=== PATIENT | female | born 1990 | race Caucasian/White ===

== ENCOUNTER 2023-04-25 21:23 | Outpatient (REF) | payer MEDICAID, SELFPAY ==
[2023-05-01 11:09] LABS: Age Gdln ACOG Testing Note (.); HPV Aptima Negative (Negative); IGP, Aptima HPV, rfx 16/18,45 Note (.)
== END 2023-04-25 21:24 | disposition home or self-care (01) ==
LOC: LAB 21:23
PROVIDERS: Visit Provider Obstetrics & Gynecology
DX: Z01.419 Encounter for gynecological examination (general) (routine) without abnormal findings (principal)
CPT/HCPCS: 87624; G0145

== ENCOUNTER 2024-01-06 14:17 | Emergency (ER) | payer MEDICAID, SELFPAY ==
[2024-01-06 14:38] VITALS: BP 133/92; PULSE 88; TEMP 37.5; O2SAT 99; BMI 21.9
--- OUTSIDE RECORDS SUMMARY | 2024-01-06 14:40 | XMS_ITS | CCD ---
Author Organization [facility] Care Team Providers Care Vice President Corporate Communications Name Role Phone AMMON OLIVAREZ Referring Unavailable ANGLIM, BRIA Primary Care Unavailable Anglim, Bria Primary Care Provider [phone] BELL[address] ., DR ST Consulting Unavailabl e ANGLIM, BRIA Primary Care Unavailable KARASIK ., DR ST Attending Unavailabl e KARASIK ., DR ST Admitting Unavailabl e KONSTAN, CIARAN Consulting Unavailable ANGLIM, BRIA Primary Care Unavailable CROTNEY ., DR CHU Attending Unavailable CORTNEY ., DR HCU Admitting Unavailable ANGLIM, BRIA Primary Care Unavailable CORTNEY ., DR CHU Attending Unavailable CORTNEY ., DR CHU Admitting Unavailable QUIROS, LEONEL Consulting Unavailable ANGLIM, BRIA Primary Care Unavailable CORTNEY ., DR CHU Attending Unavailable CORTNEY ., DR CHU Admitting Unavailable CORTNEY ., DR CHU Consulting Unavailable ANGLIM, BRIA Primary Care Unavailable CORTNEY ., DR CHU Attending Unavailable CORTNEY ., DR CHU Admitting Unavailable CORTNEY ., DR CHU Consulting Unavailable ANGLIM, BRIA Primary Care Unavailable CORTNEY ., DR CHU Attending Unavailable CORTNEY ., DR CHU Admitting Unavailable AGUBOSIM, KILLIAN Consulting Unavailable LONG, JENNIFER Consulting Unavailable ANGLIM, BRIA Consulting Unavailable CORTNEY ., DR CHU Consulting Unavailable ANGLIM, BRIA Primary Care Unavailable CORTNEY ., DR CHU Attending Unavailable CORTNEY ., DR CHU Admitting Unavailable CORTNEY ., DR CHU Consulting Unavailable ANGLIM, BRIA Primary Care Unavailable CORTNEY ., DR CHU Attending Unavailable CORTNEY ., DR CHU Admitting Unavailable CORTNEY ., DR CHU Consulting Unavailable ANGLIM, BRIA Primary Care Unavailable CORTNEY ., DR CHU Attending Unavailable CORTNEY ., DR CHU Admitting Unavailable TERRA ., CORNELIUS Consulting Unavailable ANGLIM, BRIA Primary Care Unavailable TERRA ., CORNELIUS Attending Unavailable TERRA ., CORNELIUS Admitting Unavailable CORTNEY ., DR CHU Consulting Unavailable ANGLIM, BRIA Primary Care Unavailable CORTNEY ., DR CHU Attending Unavailable CORTNEY ., DR CHU Admitting Unavailable DAVID GARRETT Unavailable JOSE C, MENNATALLAH M Attending Unavailable ANGLIM, BRIA A Referring Unavailable MCDERMOTT, ADRYAN L Primary Care Unavailable JOSE C, MENNATALLAH M Attending Unavailable MCDERMOTT, ADRYAN L Referring Unavailable MCDERMOTT, ADRYAN L Primary Care Unavailable CORTNEYVLAD Attending Unavailable MCDERMOTT, ADRYAN L Referring Unavailable MCDERMOTT, ADRYAN L Primary Care Unavailable JOSE C, MENNATALLAH M Admitting Unavailable JOSE C, MENNATALLAH M Attending Unavailable MCDERMOTT, ADRYAN L Primary Care Unavailable MCDERMOTT, ADRYAN L Primary Care Unavailable KIMBERLY AWAN Attending Unavailable Allergies Allergy Classification Reported Allergen(s) Allergy Type Date of Onset Reaction(s) Facility (3 sources) Phenazopyridine; Translations: [PHENAZOPYRIDINE] Drug Allergy 04-30-19 20 Other (See Comments) [place], [place] (1 source) Sulfonamides (Antibiotic) Propensity to adverse reactions to drug 08-24-19 17 [place] (1 source) Phenazopyridine Drug Allergy 10-09-19 21 [facility] Repository (2 sources) Sulfamethoxazole / Trimethoprim Drug Allergy 01-13-20 14 [facility] Repository (2 sources) Sulfonamides (Antibiotic) Drug allergy (disorder) 01-13-20 14 [facility] Rep[facility] (2 sources) Sulfamethoxazole / Trimethoprim; Translations: [SULFAMETHOXAZOLE-T RIMETHOPRIM] Drug Allergy 08-24-19 17 [facility] Repository (2 sources) Sulfonamides (Antibiotic); Translations: [SULFA (SULFONAMIDE ANTIBIOTICS)] Propensity to adverse reactions to drug (disorder) 08-24-19 17 [facility] Repository (2 sources) CAT DANDER; Translations: [CAT DANDER] Propensity to adverse reactions to drug (disorder) 10-02-19 24 [facility] Medications Current Medications Medication Drug Class(es) Dates Sig (Normalized) Sig (Original) fluconazole 100 mg oral tablet (1 source) Azole Antifungal take 1 tablet by mouth once daily fluconazole (DIFLUCAN) 100 MG tablet Take 100 mg by mouth daily 0 Active Problems Active Problems Problem Classification Problem Date Documented Date Episodic/Chronic Alcohol-related disorders (1 source) Alcohol dependence, uncomplicated; Translations: [ALCOHOL DEPENDENCE UNCOMPLICATED] Onset: 07-27-2021 Chronic Alcohol-related disorders (1 source) Alcohol use, unspecified with intoxication, uncomplicated; Translations: [Alcohol use, unspecified with intoxication, uncomplicated] Onset: 01-01-2024 Episodic Anxiety disorders (1 source) Post-traumatic stress disorder, unspecified; Translations: [POST-TRAUMATIC STRESS DISORDER UNS] Onset: 07-27-2021 Chronic Immunizations and screening for infectious disease (1 source) Encounter for screening for human papillomavirus (HPV); Translations: [ENC SCREENING HUMAN PAPILLOMAVIRUS] Onset: 04-21-2022 Episodic Menstrual disorders (4 sources) Irregular menstruation, unspecified; Translations: [IRREGULAR MENSTRUATION UNSPECIFIED] Onset: 05-09-2022 Chronic Open wounds of head; neck; and trunk (1 source) Laceration without foreign body of other part of head, initial encounter; Translations: [Laceration without foreign body of other part of head, initial encounter] Onset: 01-01-2024 Episodic Other acquired deformities (1 source) Scoliosis, unspecified; Translations: [SCOLIOSIS UNSPECIFIED] Onset: 07-27-2021 Chronic Other injuries and conditions due to external causes (1 source) Unspecified multiple injuries, initial encounter; Translations: [Unspecified multiple injuries, initial encounter] Onset: 01-01-2024 Episodic Other screening for suspected conditions (not mental disorders or infectious disease) (8 sources) Encounter for screening for malignant neoplasm of cervix; Translations: [Encounter for screening for Streptococcus B] Onset: 05-11-2021 Episodic Other skin disorders (1 source) Epidermal cyst; Translations: [Epidermal cyst] Onset: 10-02-2023 Episodic Ovarian cyst (1 source) Unspecified ovarian cyst, right side; Translations: [UNSPECIFIED OVARIAN CYST RIGHT SIDE] Onset: 05-11-2022 Episodic Substance-related disorders (1 source) Nicotine dependence, cigarettes, uncomplicated; Translations: [NICOTINE DEPEND CIGARETTES UNCOMP] Onset: 07-27-2021 Chronic Unclassified (1 source) CONTACT W/AND (SUSP) EXPOS COVID-19; Translations: [CONTACT W/AND (SUSP) EXPOS COVID-19] Onset: 07-22-2021 Unclassified (1 source) POST-OP VISIT Onset: 10-29-2023 Unclassified (1 source) Cyst Onset: 10-02-2023 Unclassified (1 source) Usp Clearance Onset: 01-01-2024 Unclassified (1 source) right preauricular epidermoid cyst Onset: 10-15-2023 Past or Other Problems Problem Classification Problem Date Documented Da te Episodic/Chronic Contraceptive and procreative management (5 sources) Encounter for sterilization; Translations: [ENCOUNTER FOR STERILIZATION] Onset: 07-13-2021 Episodic Early or threatened labor (4 sources) False labor before 37 completed weeks of gestation, third trimester; Translations: [FALSE LABR BEFOR 37 WK GEST 3RD TRI] Onset: 05-15-2021 Episodic Residual codes; unclassified (1 source) 36 weeks gestation of ; Translations: [36 WEEKS GESTATION OF ] Onset: 05-17-2021 Episodic Results Test Name Value Interpretation Reference Range Facility BASIC METABOLIC PANLon 12-31 Anion gap [Moles/Vol] 15 mmol/L Normal 5-15 [facility] Comment on above: Performed By: #### C ALFA SINGLETON, 5643-2 #### [facility] ([id number]) [address] [place] [address] 20324 Calcium [Mass/Vol] 9.2 mg/dL Normal 8.5-10.5 [facility] Comment on above: Performed By: #### C ALFA SINGLETON, 5643-2 #### [facility] ([id number]) [address] [place] [address] 31321 Chloride [Moles/Vol] 112 mmol/L High 98-109 [facility] Comment on above: Performed By: #### C ALFA SINGLETON, 5643-2 #### [facility] ([id number]) [address] [place] [address] 02394 CO2 [Moles/Vol] 13 mmol/L Low 22-32 [facility] Comment on above: Performed By: #### C ALFA SINGLETON, 5643-2 #### [facility] ([id number]) [address] [place] [address] 56905 Creatinine [Mass/Vol] 0.74 mg/dL Normal 0.40-1.00 [facility] Comment on above: Result Comment: METH OD TRACEABLE TO IDMS STANDARD Performed By: #### C ALFA SINGLETON, 5643-2 #### [facility] ([id number]) [address] [place] [address] 43071 eGFR (CKD-EPI) NON-RACE DEPENDENT >90 Normal >59 [facility] Comment on above: Result Comment: Reported eGFR is based on the CKD-EPI 2020 equation that does not use a race coefficient. Performed By: #### C ALFA SINGLETON, 5643-2 #### [facility] ([id number]) [address] [place] [address] 98367 Glucose [Mass/Vol] 125 mg/dL High 65-99 [facility] Comment on above: Performed By: #### C ALFA SINGLETON, 5643-2 #### [facility] ([id number]) [address] [place] [address] 57168 Potassium [Moles/Vol] 3.0 mmol/L Low 3.5-5.0 [facility] Comment on above: Performed By: #### ALFA Palacio BCA, 5643-2 #### [facility] ([id number]) [address] [place] [address] 98923 Sodium [Moles/Vol] 140 mmol/L Normal 134-146 [facility] Comment on above: Performed By: #### ALFA Palacio BCA, 5643-2 #### [facility] ([id number]) [address] [place] [address] 43416 Urea nitrogen [Mass/Vol] 10 mg/dL Normal 5-23 [facility] Comment on above: Performed By: #### ALFA Palacio BCA, 5643-2 #### [facility] ([id number]) [address] [place] [address] 33120 CBC AND AUTO DIFFon 01-01-20 24 ABSOLUTE BASOPHIL 0.2 X10E9/L Normal 0.0-0.2 [facility] Comment on above: Performed By: #### ALFA Palacio BCA, 5643-2 #### [facility] ([id number]) [address] [place] [address] 79590 ABSOLUTE NEUTROPHIL 4.9 X10E9/L Normal 1.5-6.6 [facility] Comment on above: Performed By: #### ALFA Palacio BCA, 5643-2 #### [facility] ([id number]) [address] [place] [address] 84699 Basophils/100 WBC (Bld) 2.0 % Normal [facility] Comment on above: Performed By: #### ALFA Palacio BCA, 5643-2 #### [facility] ([id number]) [address] [place] [address] 29018 Eosinophils (Bld) [#/Vol] 0.1 10*3/uL Normal 0.0-0.4 [facility] Comment on above: Performed By: #### ALFA Palacio BCA, 5643-2 #### [facility] ([id number]) [address] [place] [address] 99131 Eosinophils/100 WBC (Bld) 1.3 % Normal [facility] Comment on above: Performed By: #### ALFA Palacio BCA, 5643-2 #### [facility] ([id number]) [address] [place] [address] 35117 Erythrocyte distribution width (RBC) [Ratio] 13.4 % Normal 11.5-15.0 [facility] Comment on above: Performed By: #### ALFA Palacio BCA, 5643-2 #### [facility] ([id number]) [address] [place] [address] 81795 Hematocrit (Bld) [Volume fraction] 44.8 % Normal 35-47 [facility] Comment on above: Performed By: #### ALFA Palacio BCA, 5643-2 #### [facility] ([id number]) [address] [place] [address] 59044 Hemoglobin (Bld) [Mass/Vol] 15.2 g/dL Normal 11.7-15.5 [facility] Comment on above: Performed By: #### ALFA Palacio BCA, 5642-2 #### [facility] ([id number]) [address] [place] [address] 57976 Lymphocytes (Bld) [#/Vol] 3.0 10*3/uL Normal 1.0-3.5 [facility] Comment on above: Performed By: #### Pia SINGLETON [facility], 5642-2 #### [facility] ([id number]) [address] [place] [address] 87576 Lymphocytes/100 WBC (Bld) 33.9 % Normal [facility] Comment on above: Performed By: #### ALFA Palacio BCA, 5642- #### [facility] ([id number]) [address] [place] [address] 16074 MCH (RBC) [Entitic mass] 32.0 pg Normal 27-34 [facility] Comment on above: Performed By: #### ALFA Palacio BCA, 43-2 #### [facility] ([id number]) [address] [place] [address] 70127 MCHC (RBC) [Mass/Vol] 34.0 g/dL Normal 32-36 [facility] Comment on above: Performed By: #### ALFA Palacio BCA, 43-2 #### [facility] ([id number]) [address] [place] [address] 93920 MCV (RBC) [Entitic vol] 94 fL Normal 80-100 [facility] Comment on above: Performed By: #### ALFA Palacio BCA, 5643-2 #### [facility] ([id number]) [address] [place] [address] 24979 Monocytes (Bld) [#/Vol] 0.6 10*3/uL Normal 0-0.9 [facility] Comment on above: Performed By: #### ALFA Palacio BCA, 5643- #### [facility] ([id number]) [address] [place] [address] 23065 Monocytes/100 WBC (Bld) 7.0 % Normal [facility] Comment on above: Performed By: #### ALFA Palacio BCA, 5643-2 #### [facility] ([id number]) [address] [place] [address] 40494 Neutrophils/100 WBC (Bld) 55.8 % Normal [facility] Comment on above: Performed By: #### Pia SINGLETON [facility], 5643-2 #### [facility] ([id number]) [address] [place] [address] 71679 Platelet mean volume (Bld) [Entitic vol] 8.4 fL Normal 7-12 [facility] Comment on above: Performed By: #### ALFA Palacio BCA, 5643-2 #### [facility] ([id number]) [address] [place] [address] 99233 Platelets (Bld) [#/Vol] 312 10*3/uL Normal 150-450 [facility] Comment on above: Performed By: #### ALFA Palacio BCA, 5643-2 #### [facility] ([id number]) [address] [place] [address] 36172 RBC COUNT 4.76 X10E12/L Normal 3.80-5.20 [facility] Comment on above: Performed By: #### C MANI, ALFA, 5643-2 #### [facility] ([id number]) [address] [place] [address] 51844 WBC (Bld) [#/Vol] 8.8 10*3/uL Normal 4.0-11.0 [facility] Comment on above: Performed By: #### C MANI, BMP, 5643-2 #### [facility] ([id number]) [address] [place] [address] BRAIN WO CONTon CT BRAIN WO CONT CT BRAIN WO CONT CLINICAL INFORMATION: Head trauma, moderate-severe TECHNIQUE: CT BRAIN WO CONT CT images of the brain were obtained. Plummer-white differentiation appears intact without cortical infarct. No acute hemorrhage seen. Ventricles are nondilated. Sinuses clear. No calvarial abnormality. IMPRESSION: Negative exam. All CT scans at this facility use dose modulation, iterative reconstruction, and/or weight based dosing when appropriate to reduce radiation dose to as low as reasonably achievable. Finalized by Virgilio Iqbal MD on 01/01/2024 6:14 PM Normal [facility] CT CERVICAL SPINE WO CONTon 01-01-2024 CT CERVICAL SPINE WO CONT CT CERVICAL SPINE WO CONT CLINICAL INFORMATION: Neck trauma, dangerous injury mechanism (Age 16-64y) TECHNIQUE: CT CERVICAL SPINE WO CONT CT images of the cervical spine were obtained with images reformatted in the sagittal and coronal planes. Endplates appear intact without compression. No cervical malalignment. Facets are aligned. There is no prevertebral soft tissue swelling or evidence of acute cervical spine fracture. Lung apices grossly clear. IMPRESSION: No acute findings. All CT scans at this facility use dose modulation, iterative reconstruction, and/or weight based dosing when appropriate to reduce radiation dose to as low as reasonably achievable. Finalized by Virgilio Iqbal MD on 01/01/2024 6:14 PM Normal [facility] CT FACIAL BONES WO CONTon CT FACIAL BONES WO CONT CT FACIAL BONES WO CONT CT FACIAL BONES WO CONT 01/01/2024 5:43 PM INDICATION: Facial trauma, blunt, chin abrasion COMPARISON: 12/07/2019 TECHNIQUE: Noncontrast CT images of the facial bones were obtained. All CT scans at this facility use dose modulation, iterative reconstruction, and/or weight based dosing when appropriate to reduce radiation dose to as low as reasonably achievable. FINDINGS: Entirety of mandible not included in field of view, visualized portions are unremarkable. The pterygoid plates and zygomatic arches are unremarkable. Orbital margins are unremarkable. No definite displaced nasal bone fracture. Lateral nasal septal deviation, no definite displaced fracture. Skull base is unremarkable. Indeterminate approximately 17 mm cutaneous/subcutaneou s lesion of the right premaxillary region. Additional more subtle cutaneous lesion of the left mandibular region. IMPRESSION: 1. Entirety of mandible not included in field of view, visualized portions are unremarkable. No definite acute facial fracture. 2. Indeterminate approximately 17 mm cutaneous/subcutaneou s lesion of the right premaxillary region. Additional more subtle cutaneous lesion of the left mandibular region. Direct visualization recommended. Finalized by Hong Teresa DO on 01/01/2024 6:21 PM Normal [facility] Ethanol [Mass/Vol]on 024 ETHANOL 0.32 g/dL High 0.00-0.08 [facility] Comment on above: Result Comment: This report is intended for use in clinical monitoring or management of patients. Performed By: #### C BCA, [facility], 5643-2 #### [facility] ([id number]) [address] [place] [address], [place] [address] Surgical Pathologyon 024 Surgical Pathology Normal [facility] Comment on above: Result Comment: [facility] [address] [place] [address] Surgical Pathology Consultation Patient Name:JOE MCLEAN:1990 (Age: 33)Gender:FTaken:4Reported:4Physician(s):Ivy Sloan MD ([phone])Copy To: Rec. #:[id number]: #[id number] Final Pathologic Diagnosis Right preauricular cyst, excision: Benign dense fibrocollagenous tissue focally lined by keratinizing squamous epithelium, consistent with wall of keratinous cyst (epidermal inclusion cyst). Report Electronically Signed Out ao/4Ajaye Poon MD Interpretation performed at [facility], [address] [place] [address], License number: [id number]. Clinical History Right preauricular epidermoid cyst. Gross Description Received in formalin labeled GLAND, right preauricular cyst is a plummer-grant to pink, disrupted cystic structure, 0.8 x 0.6 x 0.3 cm. The capsular surface is smooth and glistening. The cyst lining is smooth and glistening with no papillations identified. The specimen is inked black, longitudinally bisected, and entirely submitted in a single cassette. (1, ns, [id number], m1) ANÍBAL barbosa/4R Specimen(s) Received Right ear preauricular cyst Fee Codes(s): 1; 28539 CBC AUTO DIFFon 05-09-2022 BASO # 0.1 103/ul Normal 0.0-0.1 [facility] Comment on above: Performed By: #### U MICRO, UACSIND #### [facility] [address] [place] [address] Dr. Lani Toledo Basophils/100 WBC (Bld) 0.9 % Normal 0.2-2.0 [facility] Comment on above: Performed By: #### U MICRO, UACSIND #### [facility] [address] [address] [address] Lani Toledo EO # 0.1 103/ul Normal 0.0-0.7 [facility] Comment on above: Performed By: #### U MICRO, UACSIND #### [facility] [address] [address] [address] Lani Toledo Eosinophils/100 WBC (Bld) 1.4 % Normal 0.9-7.0 [facility] Comment on above: Performed By: #### U MICRO, UACSIND #### [facility] [address] [place] [address] Dr. Lani Toledo Erythrocyte distribution width (RBC) [Ratio] 16.7 % Critically high 11.0-15.0 [facility] Comment on above: Performed By: #### U MICRO, UACSIND #### [facility] [address] [place] [address] Dr. Lani Toledo Hematocrit (Bld) [Volume fraction] 37.9 % Normal 36.0-48.0 [facility] Comment on above: Performed By: #### U MICRO, UACSIND #### [facility] [address] [place] [address] Dr. Lani Toledo Hemoglobin (Bld) [Mass/Vol] 12.7 g/dL Normal 12.0-16.0 [facility] Comment on above: Performed By: #### U MICRO, UACSIND #### [facility] [address] [place] [address] Dr. Lani Toledo IG # 0.01 10e3/ul Normal 0.00-0.03 [facility] Comment on above: Performed By: #### U MICRO, UACSIND #### [facility] [address] [place] [address] Dr. Lani Toledo IG % 0.2 % Normal 0.0-0.5 [facility] Comment on above: Performed By: #### U MICRO, UACSIND #### [facility] [address] [place] [address] Dr. Lani Toledo LYMPH # 2.0 103/ul Normal 1.2-3.8 [facility] Comment on above: Performed By: #### U MICRO, UACSIND #### [facility] [address] [place] [address] Dr. Lani Toledo Lymphocytes/100 WBC (Bld) 35.6 % Normal 20.5-60.0 [facility] Comment on above: Performed By: #### U MICRO, UACSIND #### [facility] [address] [place] [address] Dr. Lani Toledo MANUAL DIFF REQ NO Normal [facility] Comment on above: Performed By: #### U MICRO, UACSIND #### [facility] [address] [place] [address] Dr. Lani Toledo MCH (RBC) [Entitic mass] 27.9 pg Normal 26.7-34.0 [facility] Comment on above: Performed By: #### U MICRO, UACSIND #### [facility] [address] [place] [address] Dr. Lani Toledo MCHC (RBC) [Mass/Vol] 33.5 g/dL Normal 29.9-35.2 [facility] Comment on above: Performed By: #### U MICRO, UACSIND #### [facility] [address] [place] [address] Dr. Lani Toledo MCV (RBC) [Entitic vol] 83.1 fL Normal 81.0-99.0 [facility] Comment on above: Performed By: #### U MICRO, UACSIND #### [facility] [address] [place] [address] Dr. Lani Toledo MONO # 0.5 103/ul Normal 0.3-0.8 [facility] Comment on above: Performed By: #### U MICRO, UACSIND #### [facility] [address] [place] [address] Dr. Lani Toledo Monocytes/100 WBC (Bld) 9.0 % Normal 1.7-12.0 [facility] Comment on above: Performed By: #### U MICRO, UACSIND #### [facility] [address] [place] [address] Dr. Lani Toledo NEUT # 2.9 103/ul Normal 1.4-6.5 [facility] Comment on above: Performed By: #### U MICRO, UACSIND #### [facility] [address] [place] [address] Dr. Lani Toledo Neutrophils/100 WBC (Bld) 52.9 % Normal 43.0-75.0 [facility] Comment on above: Performed By: #### U MICRO, UACSIND #### [facility] [address] [address] [address] Lani Toledo Platelet mean volume (Bld) [Entitic vol] 9.4 fL Critically low 9.5-13.5 [facility] Comment on above: Performed By: #### U MICRO, UACSIND #### [facility] [address] [address] [address] Lani Toledo PLT 288 103/ul Normal 150-450 [facility] Comment on above: Performed By: #### U MICRO, UACSIND #### [facility] [address] [address] [address] Lani Toledo RBC 4.56 106/ul Normal 4.20-5.40 [facility] Comment on above: Performed By: #### U MICRO, UACSIND #### [facility] [address] [address] [address] Lani Toledo WBC 5.5 103/ul Normal 4.0-11.0 [facility] Comment on above: Performed By: #### U MICRO, UACSIND #### [facility] [address] [place] [address] Dr. Lani Toledo FREE T4on 05-09-2022 Free T4 [Mass/Vol] 1.11 ng/dL Normal 0.76-1.46 [facility] Comment on above: Performed By: #### F T4 #### [facility] [address] [address] [address] Lani Toledo GLYCOHEMOGLOBIN A1Con 2022 ADA RECOMMENDATION SEE BELOW Normal [facility] Comment on above: Result Comment: ADA RECOMMENDED LIMIT 4.0 - 6.0 ADA THERAPEUTIC TARGET < 7.0 ACTION SUGGESTED > 7.0 Performed By: #### A 1C #### [facility] [address] [place] [address] Dr. Lani Toledo Glucose [Mass/Vol] 108 mg/dL Normal [facility] Comment on above: Performed By: #### A 1C #### [facility] [address] [place] [address] Dr. Lani Toledo HbA1c (Bld) [Mass fraction] 5.4 % Normal 4.5-6.2 [facility] Comment on above: Performed By: #### A 1C #### [facility] [address] [place] [address] Dr. Lani Toledo PROTIMEon 05-09-2022 INR Coag (PPP) [Relative time] 1.10 {INR} Normal [facility] Comment on above: Performed By: #### P T, PTT #### [facility] [address] [place] [address] Dr. Lani Toledo INR GUIDELINES SEE BELOW Normal [facility] Comment on above: Result Comment: ESTRELLA RED INR: 2.0 - 3.0 CONDITIONS NOT LISTED BELOW 2.5 - 3.5 FOR PROSTHETIC HEART VALVE REPLACEMENT 2.5 - 3.5 RECURRENT THROMBOSIS Performed By: #### P T, PTT #### [facility] [address] [place] [address] Dr. Lani Toledo PT Coag (PPP) [Time] 11.6 s Normal 9.0-11.6 [facility] Comment on above: Performed By: #### P T, PTT #### [facility] [address] [place] [address] Dr. Lani Toledo PTTon 05-09-2022 aPTT Coag (Bld) [Time] 28.2 s Normal 22.3-36.2 [facility] Comment on above: Performed By: #### P T, PTT #### [facility] [address] [place] [address] Dr. Lani Toledo TSHon 05-09-2022 TSH 1.068 uIU/mL Normal 0.358-3.740 [facility] Comment on above: Performed By: #### U MICRO, UACSIND #### [facility] [address] [place] [address] Dr. Lani Toledo US PELVIS AND TRANSVAGon US PELVIS AND TRANSVAG EXAM: Pelvic ultrasound HISTORY: . Irregular periods . COMPARISON: None. TECHNIQUE: Transabdominal and transvaginal scanning was performed. FINDINGS: Scanning of the pelvis demonstrates an anteverted uterus. The uterus measures 9.1 x 4.6 x 6.2 cm. Endometrial complex measures 9 mm. Right ovary measures 3.8 x 2.3 x 2.5 cm. Color-flow is noted. There is a 2.1 x 1.5 cm cyst within the right ovary. Left ovary measures 2.5 x 2.7 x 1.4 cm. Color-flow is noted. Follicles are noted within the left ovary. No fluid is noted in the cul-de-sac. IMPRESSION: 1. Normal-appearing anteverted uterus. 2. Normal left ovary. 3. 2.1 x 1.5 cm cyst within the right ovary. Electronically authenticated by: DAVID GARRETT Date: 2022-05-09 12:56 Normal [facility] PAP ACOG PANEL 2: 30 to 65on 04-26-2022 HPV Genotype 16 Negative Normal Negative [facility] Comment on above: Performed By: #### [id number] #### [facility] [address] [place] [address] Dr. Lani Toledo HPV Genotype 18,45 Negative Normal Negative [facility] Comment on above: Performed By: #### [id number] #### [facility] [address] [address] [address] Lani Toledo . . Normal [facility] Comment on above: Result Comment: Perf ormed at: [facility] Performed By: #### [id number] #### [facility] [address] [address] [address] Lani Toledo Age Gdln ACOG Testing 30-65 Normal [facility] Comment on above: Performed By: #### [id number] #### [facility] [address] [address] [address] Lani Toledo DIAGNOSIS: Comment Normal [facility] Comment on above: Result Comment: NEGA TIVE FOR INTRAEPITHELIAL LESION OR MALIGNANCY. Performed at: [facility] Performed By: #### [id number] #### [facility] [address] [address] [address] Lani Toledo HPV Aptima Positive Abnormal Negative [facility] Comment on above: Result Comment: This nucleic acid amplification test detects fourteen high-risk HPV types (16,18,31,33,35,39,45,51,52,56,58,59,66,68) without differentiation. Performed at: =G Performed By: #### [id number] #### [facility] [address] [place] [address] Dr. Lani Toledo HPV Genotype Reflex Comment Normal [facility] Comment on above: Result Comment: Alex conner, see HPV Genotype results. Performed at: [facility] Performed By: #### [id number] #### [facility] [address] [place] [address] Dr. Lani Toledo Methodology: Comment Normal [facility] Comment on above: Result Comment: This liquid based ThinPrep(R) pap test was screened with the use of an image guided system. Performed at: [facility] Performed By: #### [id number] #### [facility] [address] [place] [address] Dr. Lani Toledo Note: Comment Normal [facility] Comment on above: Result Comment: The Pap smear is a screening test designed to aid in the detection of premalignant and malignant conditions of the uterine cervix. It is not a diagnostic procedure and should not be used as the sole means of detecting cervical cancer. Both false-positive and false-negative reports do occur. . Performed at: [facility] Performed By: #### [id number] #### [facility] [address] [place] [address] Dr. Lani Toledo Performed by: Comment Normal [facility] Comment on above: Result Comment: Rip Galindo, Raised Printer (ASCP) Performed at: [facility] Performed By: #### [id number] #### [facility] [address] [place] [address] Dr. Lani Toledo Specimen adequacy: Comment Normal [facility] Comment on above: Result Comment: Sati sfactory for evaluation. Endocervical and/or squamous metaplastic cells (endocervical component) are present. Performed at: [facility] Performed By: #### [id number] #### [facility] [address] [place] [address] Dr. Lani Toledo CHLAMYDIA/GONOCOCCUS ADORE (SW AB/URINE/PAPon 04-21-2022 Chlamydia trachomatis, ADORE Negative Normal Negative [facility] Comment on above: Performed By: #### U MICRO, UACSIND #### [facility] [address] [place] [address] Dr. Lani Toledo Neisseria gonorrhoeae, ADORE Negative Normal Negative [facility] Comment on above: Performed By: #### U MICRO, UACSIND #### [facility] [address] [address] [address] Lani Toledo VAGINITIS/VAGINOSIS DNA PROB Percy 04-20-2022 Samanta species Negative Normal Negative [facility] Comment on above: Performed By: #### U MICRO, UACSIND #### [facility] [address] [place] [address] Dr. Lani Toledo Gardnerella vaginalis Negative Normal Negative [facility] Comment on above: Performed By: #### U MICRO, UACSIND #### [facility] [address] [place] [address] Dr. Lani Toledo Trichomonas vaginalis Negative Normal Negative [facility] Comment on above: Performed By: #### U MICRO, UACSIND #### [facility] [address] [place] [address] Dr. Lani Toledo CBC AUTO DIFFon 07-22-2021 BASO # 0.1 103/ul Normal 0.0-0.1 [facility] Comment on above: Performed By: #### U MICRO, UACSIND #### [facility] [address] [place] [address] Dr. Lani Toledo Basophils/100 WBC (Bld) 0.7 % Normal 0.2-2.0 [facility] Comment on above: Performed By: #### U MICRO, UACSIND #### [facility] [address] [place] [address] Dr. Lani Toledo EO # 0.2 103/ul Normal 0.0-0.7 [facility] Comment on above: Performed By: #### U MICRO, UACSIND #### [facility] [address] [place] [address] Dr. Lani Toledo Eosinophils/100 WBC (Bld) 1.5 % Normal 0.9-7.0 [facility] Comment on above: Performed By: #### U MICRO, UACSIND #### [facility] [address] [place] [address] Dr. Lani Toledo Erythrocyte distribution width (RBC) [Ratio] 14.9 % Normal 11.0-15.0 [facility] Comment on above: Performed By: #### U MICRO, UACSIND #### [facility] [address] [place] [address] Dr. Lani Toledo Hematocrit (Bld) [Volume fraction] 41.6 % Normal 36.0-48.0 [facility] Comment on above: Performed By: #### U MICRO, UACSIND #### [facility] [address] [place] [address] Dr. Lani Toledo Hemoglobin (Bld) [Mass/Vol] 13.3 g/dL Normal 12.0-16.0 [facility] Comment on above: Performed By: #### U MICRO, UACSIND #### [facility] [address] [place] [address] Dr. Lani Toledo IG # 0.04 10e3/ul Critically high 0.00-0.03 [facility] Comment on above: Performed By: #### U MICRO, UACSIND #### [facility] [address] [place] [address] Dr. Lani Toledo IG % 0.4 % Normal 0.0-0.5 [facility] Comment on above: Performed By: #### U MICRO, UACSIND #### [facility] [address] [place] [address] Dr. Lani Toledo LYMPH # 2.6 103/ul Normal 1.2-3.8 [facility] Comment on above: Performed By: #### U MICRO, UACSIND #### [facility] [address] [place] [address] Dr. Lani Toledo Lymphocytes/100 WBC (Bld) 26.0 % Normal 20.5-60.0 [facility] Comment on above: Performed By: #### U MICRO, UACSIND #### [facility] [address] [address] [address] Lani Toledo MANUAL DIFF REQ NO Normal [facility] Comment on above: Performed By: #### U MICRO, UACSIND #### [facility] [address] [place] [address] Dr. Lani Toledo MCH (RBC) [Entitic mass] 28.9 pg Normal 26.7-34.0 [facility] Comment on above: Performed By: #### U MICRO, UACSIND #### [facility] [address] [place] [address] Dr. Lani Toledo MCHC (RBC) [Mass/Vol] 32.0 g/dL Normal 29.9-35.2 [facility] Comment on above: Performed By: #### U MICRO, UACSIND #### [facility] [address] [place] [address] Dr. Lani Toledo MCV (RBC) [Entitic vol] 90.2 fL Normal 81.0-99.0 [facility] Comment on above: Performed By: #### U MICRO, UACSIND #### [facility] [address] [place] [address] Dr. Lani Toledo MONO # 0.6 103/ul Normal 0.3-0.8 [facility] Comment on above: Performed By: #### U MICRO, UACSIND #### [facility] [address] [place] [address] Dr. Lani Toledo Monocytes/100 WBC (Bld) 5.9 % Normal 1.7-12.0 [facility] Comment on above: Performed By: #### U MICRO, UACSIND #### [facility] [address] [place] [address] Dr. Lani Toledo NEUT # 6.5 103/ul Normal 1.4-6.5 [facility] Comment on above: Performed By: #### U MICRO, UACSIND #### [facility] [address] [place] [address] Dr. Lani Toledo Neutrophils/100 WBC (Bld) 65.5 % Normal 43.0-75.0 [facility] Comment on above: Performed By: #### U MICRO, UACSIND #### [facility] [address] [address] [address] Lani Toledo Platelet mean volume (Bld) [Entitic vol] 9.8 fL Normal 9.5-13.5 [facility] Comment on above: Performed By: #### U MICRO, UACSIND #### [facility] [address] [address] [address] Lani Toledo PLT 369 103/ul Normal 150-450 [facility] Comment on above: Performed By: #### U MICRO, UACSIND #### [facility] [address] [address] [address] Lani Toledo RBC 4.61 106/ul Normal 4.20-5.40 [facility] Comment on above: Performed By: #### U MICRO, UACSIND #### [facility] [address] [address] [address] Lani Toledo WBC 10.0 103/ul Normal 4.0-11.0 [facility] Comment on above: Performed By: #### U MICRO, UACSIND #### [facility] [address] [address] [address] Lani Toledo PREG QUANT HCGon 07-22-2021 HCG QUANT <1 Normal [facility] Comment on above: Performed By: #### U MICRO, UACSIND #### [facility] [address] [address] [address] Lani Toledo HCG RANGE SEE BELOW Normal [facility] Comment on above: Result Comment: 5-50 0-1 WEEK 40-300 1-2 WEEKS 100-1,000 2-3 WEEKS 500-6,000 3-4 WEEKS 5,000-200,000 1-2 MONTHS 10,000-100,000 2-3 MONTHS 3,000-50,000 2ND TRIMESTER 1,000-50,000 3RD TRIMESTER Performed By: #### U MICRO, UACSIND #### [facility] [address] [address] [address] Lani Toledo Covid-19 PCR ([facility])on 07-03 SARS-CoV-2 (COVID-19) RNA ADORE+probe Ql (Unsp spec) Not detected Normal NOT DETECTED [facility] Comment on above: Result Comment: This test is not yet approved or cleared by the [place] FDA. When there are no FDA-approved or cleared tests available, and other criteria are met, FDA can make tests available under an emergency access mechanism called an Emergency Use Authorization (EUA). The EUA for this test is supported by the [employer] Operator of Health and Human Service's (HHS's) declaration that circumstances exist to justify the emergency use of in vitro diagnostics for the detection and/or diagnosis of the virus that causes COVID-19. This EUA will remain in effect (meaning this test can be used) for the duration of the COVID-19 declaration justifying emergency of IVDs, unless it is terminated or revoked by FDA (after which the test may no longer be used). When diagnostic testing is negative, the possibility of a false negative should be considered in the context of a patient's recent exposures and the presence of clinical signs and symptoms consistent with SARS-CoV-2. Performed By: #### C VDTBH #### [facility] [address] [place] [address] Dr. Lani Toledo CANNABINOID (THC) CONFIRMATI ON, URINEon 05-26-2021 Cannabinoid Positive Abnormal [facility] Comment on above: Performed By: #### T HCCONF #### [facility] [address] [place] [address] Dr. Lani Toledo Carboxy THC GC/MS Conf 201 ng/mL Normal Cutoff=10 [facility] Comment on above: Performed By: #### T HCCONF #### [facility] [address] [place] [address] Dr. Lani Toledo DRUG SCREEN RAPID (URINE)on 05-15-2021 AMP Negative Normal NEGATIVE [facility] Comment on above: Performed By: #### D RUGRPD #### [facility] [address] [place] [address] Dr. Lani Toledo BAR Negative Normal NEGATIVE [facility] Comment on above: Performed By: #### D RUGRPD #### [facility] [address] [place], [place] [id number] Dr. Lani Toledo BUP Negative Normal NEGATIVE [facility] Comment on above: Performed By: #### D RUGRPD #### [facility] [address] [place] [address] Dr. Lani Toledo BZO Negative Normal NEGATIVE [facility] Comment on above: Performed By: #### D RUGRPD #### [facility] [address] [place] [address] Dr. Lani Toledo SIGIFREDO Negative Normal NEGATIVE [facility] Comment on above: Performed By: #### D RUGRPD #### [facility] [address] [place] [address] Dr. Lani Toledo CUT-OFFS SEE BELOW Normal [facility] Comment on above: Result Comment: AMP (Amphetamine): 500ng/mL, BAR (Barbituates): 200 ng/mL, BZO (Benzodiazepines): 150 ng/mL, BUP (Buprenorphine): 10 ng/mL, SIGIFREDO (Cocaine): 150 ng/mL, mAMP (Methamphetamine): 500 ng/mL, MTD (Methadone): 200 ng/mL, OPI (Opiates): 100 ng/mL, OXY (Oxycodone): 100 ng/mL, PCP (Phencyclidine): 25 ng/mL, PPX (Propoxyphene): 300 ng/mL, THC (Cannabinoids): 50 ng/mL, TCA (Trycyclic Antidepressants): 300 ng/mL Performed By: #### D RUGRPD #### [facility] [address] [place] [address] Dr. Lani Toledo DRUG CUT HEADER DRUG CLASS TEST SYSTEM CUT-OFF CONCENTRATIONS ARE FOLLOWS: Normal [facility] Comment on above: Performed By: #### D RUGRPD #### [facility] [address] [place] [address] Dr. Lani Toledo mAMP Negative Normal NEGATIVE [facility] Comment on above: Performed By: #### D RUGRPD #### [facility] [address] [place] [address] Dr. Lani Toledo MTD Negative Normal NEGATIVE [facility] Comment on above: Performed By: #### D RUGRPD #### [facility] [address] [place] [address] Dr. Lani Toledo OPI Negative Normal NEGATIVE [facility] Comment on above: Performed By: #### D RUGRPD #### [facility] [address] [place] [address] Dr. Lani Toledo OXY Negative Normal NEGATIVE [facility] Comment on above: Performed By: #### D RUGRPD #### [facility] [address] [place] [address] Dr. Lani Toledo PCP Negative Normal NEGATIVE [facility] Comment on above: Performed By: #### D RUGRPD #### [facility] [address] [place] [address] Dr. Lani Toledo PPX Negative Normal NEGATIVE [facility] Comment on above: Performed By: #### D RUGRPD #### [facility] [address] [place] [address] Dr. Lani Toledo TCA Negative Normal NEGATIVE [facility] Comment on above: Performed By: #### D RUGRPD #### [facility] [address] [place] [address] Dr. Lani Toledo THC Positive Abnormal NEGATIVE [facility] Comment on above: Performed By: #### D RUGRPD #### [facility] [address] [place] [address] Dr. Lani Toledo UA (CLEAN/CATCH) AUTOMOBILE CARPETS MOLDER/MICRO I F IND.on 05-15-2021 Bilirubin Ql (U) Negative Normal NEGATIVE [facility] Comment on above: Performed By: #### U MICRO, UACSIND #### [facility] [address] [place] [address] Dr. Lani Toledo Clarity (U) CLEAR Normal CLEAR [facility] Comment on above: Performed By: #### U MICRO, UACSIND #### [facility] [address] [place] [address] Dr. Lani Toledo Color (U) LT. YELLOW Normal YELLOW [facility] Comment on above: Performed By: #### U MICRO, UACSIND #### [facility] [address] [place] [address] Dr. Lani Toledo Glucose Ql (U) Negative Normal NEGATIVE [facility] Comment on above: Performed By: #### U MICRO, UACSIND #### [facility] [address] [address] [address] Lani Toledo Hemoglobin Ql (U) TRACE-INTACT Abnormal NEGATIVE [facility] Comment on above: Performed By: #### U MICRO, UACSIND #### [facility] [address] [address] [address] Lani Toledo Ketones Ql (U) Negative Normal NEGATIVE [facility] Comment on above: Performed By: #### U MICRO, UACSIND #### [facility] [address] [address] [address] Lani Toledo LEUKOCYTES Negative Normal NEGATIVE [facility] Comment on above: Performed By: #### U MICRO, UACSIND #### [facility] [address] [address] [address] Lani Toledo Nitrite Ql (U) Negative Normal NEGATIVE [facility] Comment on above: Performed By: #### U MICRO, UACSIND #### [facility] [address] [address] [address] Lani Toledo pH (U) 8.5 [pH] Normal 5-9 [facility] Comment on above: Performed By: #### U MICRO, UACSIND #### [facility] [address] [address] [address] Lani Toledo SPEC GRAVITY 1.020 Normal 1.005-<=1.025 [facility] Comment on above: Performed By: #### U MICRO, UACSIND #### [facility] [address] [address] [address] Lani Toledo UA PROTEIN Negative Normal NEGATIVE/ TRACE [facility] Comment on above: Performed By: #### U MICRO, UACSIND #### [facility] [address] [address] [address] Lani Toledo UR MICRO IND INDICATED Normal [facility] Comment on above: Performed By: #### U MICRO, UACSIND #### [facility] [address] [address] [address] Lani Toledo Urobilinogen Qn (U) 0.2 {Glynn'U}/dL Normal 0.2 - 1. 0 [facility] Comment on above: Performed By: #### U MICRO, UACSIND #### [facility] [address] [address] [address] Lani Toledo URINE MICROSCOPIC ONLYon BACTERIA TRACE Abnormal NONE SEEN [facility] Comment on above: Performed By: #### U MICRO, UACSIND #### [facility] [address] [place] [address] Dr. Lani Toledo Bacteria identified Cx Nom (U) NOT INDICATED Normal [facility] Comment on above: Performed By: #### U MICRO, UACSIND #### [facility] [address] [place] [address] Dr. Lani Toledo CAST NONE SEEN Normal NONE SEEN [facility] Comment on above: Performed By: #### U MICRO, UACSIND #### [facility] [address] [place] [address] Dr. Lani Toledo Crystals LM Nom (Urine sed) NONE SEEN Normal NONE SEEN [facility] Comment on above: Performed By: #### U MICRO, UACSIND #### [facility] [address] [place] [address] Dr. Lani Toledo Epithelial cells LM Ql (Urine sed) FEW Abnormal NONE SEEN /RARE [facility] Comment on above: Performed By: #### U MICRO, UACSIND #### [facility] [address] [place] [address] Dr. Lani Toledo MUCOUS TRACE Abnormal NONE SEEN [facility] Comment on above: Performed By: #### U MICRO, UACSIND #### [facility] [address] [place] [address] Dr. Lani Toledo RBC 2-5 Abnormal 0-2 [facility] Comment on above: Performed By: #### U MICRO, UACSIND #### [facility] [address] [place] [address] Dr. Lani Toledo WBC 0-2 Abnormal NONE SEEN [facility] Comment on above: Performed By: #### U MICRO, UACSIND #### [facility] [address] [place], [place] [address] Dr. Lani Toledo Cult,Urineon 05-15-2019 Cult,Urine Specimen Description .CLEAN CATCH URINE Special Requests NOT REPORTED Culture NO SIGNIFICANT GROWTH Report Status FINAL 05/14/2019 Normal [facility] Comment on above: Performed By: #### U RC #### [facility] [address] [id number] Transit Mixer Driver: Erik Judge MD Encounters Encounter Date Encounter Type Care Provider Facility Start: 01-01-2024 End: 01-01-2024 Emergency department patient visit [facility] Start: 11-23-2023 End: 11-23-2023 ambulatory VLAD CORTNEY Not Available Start: 10-29-2023 End: 10-29-2023 ambulatory [facility] Start: 10-15-2023 End: 10-15-2023 Evaluation and management of inpatient [facility] Start: 10-11-2023 End: 10-11-2023 ambulatory [facility] Start: 10-02-2023 End: 10-02-2023 ambulatory [facility] Start: 08-31-2023 End: 08-31-2023 ambulatory VLAD CORTNEY Not Available Start: 06-22-2023 End: 06-22-2023 ambulatory VLAD CORTNEY Not Available Start: 04-25-2023 End: 04-25-2023 ambulatory VLAD CORTNEY Not Available Start: 04-13-2023 End: 04-13-2023 ambulatory VLAD CORTNEY Not Available Start: 01-23-2023 End: 01-23-2023 ambulatory VLAD CORTNEY Not Available Start: 05-09-2022 End: 05-10-[address] VLAD OMALLEY . Facility: Start: 04-21-2022 Encounter for gynecological examination (general) (routine) without abnormal findings DR VLAD OMALLEY . [facility] Start: 04-18-2022 End: 04-18-[address] VLAD OMALLEY . Facility:[facility] Start: 07-22-2021 Encounter for preprocedural laboratory examination DR VLAD OMALLEY . [facility] Start: 07-22-2021 End: 07-22-[address] VLAD OMALLEY . Facility:[facility] Start: 07-19-2021 End: 07-20-[address] VLAD OMALLEY . Facility:[facility] Start: 07-19-2021 End: 07-20-2021 Encounter for preprocedural laboratory examination DR VLAD OMALLEY . Facility:[facility] Start: 07-13-2021 Encounter for other preprocedural examination DR VLAD OMALLEY . [facility] Start: 07-11-2021 End: 07-12-2021 ambulatory LEONEL QUIROS Facility:[facility] Start: 07-11-2021 End: 07-12-2021 Encounter for other preprocedural examination LEONEL QUIROS Facility:[facility] Start: 05-17-2021 ambulatory BRIA ANAND Facility:[facility] 1 Start: 05-15-2021 End: 05-15-[address] MACIEL BLANCO . Facility:[facility] Start: 05-14-2021 ambulatory BRIA ANAND Facility:[facility] 1 Start: 05-11-2021 End: 05-11-[address] VLAD OMALLEY . Facility:[facility] Start: 05-13-2019 End: 05-14-2019 Patient encounter procedure AMMON OLIVAREZ [facility] Start: 05-13-2019 End: 05-13-2019 Subsequent hospital visit by physician Bria [place] [facility] Procedures Date Procedure Procedure Detail Performing Clinician Start: 05-13-2019 Culture bacterial qu anttative colony count urine AMMON OLIVAREZ Plan of Treatment Date Care Activity Detail Author Start: 02-07-2042 Shingles Vaccine (1 of 2) Shingles Vaccine (1 of 2) [facility], [place] Start: 08-26-2019 End: 08-26-2019 Office Visit 08/26/2019 Office Visit Urology Amomn Olivarez MD [address] [place] [address] [phone] [facility] [place] Start: 11-03-2018 Influenza vaccination Flu vaccine (# 1) [place], [place] Start: 02-07-2013 Cervical cancer screen Cervical canc er screen [place], [place] Start: 02-07-2011 DTaP/Tdap/Td vaccine (1 - Tdap) DTaP/Tdap/Td vaccine (1 - Tdap) [place] Start: 02-07-2007 HIV screen HIV screen [place], [place] Start: 02-07-1993 Varicella vaccine (1 of 2 - 2-dose childhood series) Varicella vaccine (1 of 2 - 2-dose childhood series) [place] End: 05-13-2019 Culture, Urine Culture, Urine Microbiology Routine Once for 1 Occurrences starting 05/13/2019 until 05/13/2019 [place] Comment on above: Once for 1 Occurrenc es starting 05/13/2019 until 05/13/2019 Culture, Urine Culture, Urine Microbiology Routine 05/13/2019 9:39 PM EDT [place] Payers Date Payer Category Payer Medicaid [id number] 2014 Unknown [id number] 2014 Unknown [employer] xxxxxxxxxxx 2014-Present [phone] [address] [place] [address] xxxxxxxxxxx [id number] 1992 Unknown [id number] 2.16.840.1.164547.3.579.2.175 1992 Unknown [id number] 2.16.840.1.561320.3.579.2.593 1992 Unknown [id number] 2.16.840.1.656131.3.579.2.593 1992 Unknown [id number] 2.16.840.1.481689.3.579.2.593 1992 Unknown [id number] 2.16.840.1.759123.3.579.2.593 1992 Unknown [id number] 2.16.840.1.154642.3.579.2.593 1992 Unknown [id number] 2.16.840.1.324460.3.579.2.593 1992 Unknown [id number] 2.16.840.1.676971.3.579.2.593 1992 Unknown [id number] 2.16.840.1.184336.3.579.2.593 1992 Unknown [id number] 2.16.840.1.681937.3.579.2.593 1992 Unknown [id number] 2.16.840.1.978177.3.579.2.593 1992 Unknown [id number] 2.16.840.1.301659.3.579.2.593 1992 Unknown [id number] 2.16.840.1.878848.3.579.2.1286 1992 Unknown [id number] 2.16.840.1.793011.3.579.2.1286 1992 Unknown [id number] 2.16.840.1.811545.3.579.2.1259 1992 Unknown [id number] 2.16.840.1.900553.3.579.2.1259 1992 Unknown [id number] 2.16.840.1.180512.3.579.2.1259 1992 Unknown [id number] 2.16.840.1.891679.3.579.2.1259 1992 Unknown [id number] 2.16.840.1.994652.3.579.2.1259 1992 Unknown [id number] 2.16.840.1.078246.3.579.2.1259 1992 Unknown [id number] 2.16.840.1.513797.3.579.2.1286 1992 Unknown [id number] 2.16.840.1.502602.3.579.2.1286 1992 Unknown [id number] 2.16.840.1.641138.3.579.2.1286 1959 Unknown [id number] Social History Date Type Detail Facility Start: 05-13-2019 [facility] smoker [place] History of tobacco use Cigarette Smoker [place] Start: 05-13-2019 Cigarettes smoked current (pack per day) - Reported [place] Start: 05-13-2019 Alcohol intake Current drinke r of alcohol (finding) [place] Start: 05-13-2019 History SDOH Alcohol Frequency 4 [place] Sex Assigned At Not on file [place] Clinical Note 07-22-2021 Note Date & Type Note Facility 07-22-2021 Note OPERATIVE NOTE OPERATION DATE: 07/22/2021 PROCEDURE: Bilateral laparoscopic salpingectomy. PREOPERATIVE DIAGNOSIS: Desires permanent sterilization, multiparity. POSTOPERATIVE DIAGNOSIS: Desires permanent sterilization, multiparity. ANESTHESIA: General. SURGEON: Vlad Omalley M.D. CHANGE MANAGEMENT DIRECTOR: DEUCE Zimmer URINE OUTPUT: Yellow and clear. BLOOD LOSS: 10 mL. FINDINGS: Normal appearing ovaries, uterus and tubes. SPECIMEN: Bilateral tubes. PROCEDURE: The patient was taken back to the Operating Room where she was given general anesthesia without difficulty. She was then prepped and draped in the normal sterile fashion after being placed in a dorsal lithotomy position. A wet sponge stick was placed into the patient's vagina. Attention was then turned to the patient's abdomen, where a scalpel was used to make a small infraumbilical incision. The S retractors were then used to dissect the underlying layers until the fascia could be seen. The fascia was then grasped with Nubia clamps and tented up. A knife was then used to make a small incision to the fascia. The muscle was identified, at that time two sutures of #0 Vicryl on a GI needle was then used and placed through the fascia. The peritoneum was then identified and entered bluntly. The 10-4 Wiliam was then placed into the patient's abdomen. This was confirmed with direct visualization of the bowel, using the laparoscope. The patient's abdomen was then insufflated using approximately 4 liters of CO2 gas. Survey of the patient's abdomen demonstrated ovaries were normal in appearance as well as both tubes and uterus. A second and third rt and lt lateral ports which were 7-8 and 5 mm in size, was then placed after the skin incision was made under direct visualization The patient's tube on the patient's right side was identified and tented up using a grasper, the LigaSure apparatus was then used to come across the mesosalpinx from the fimbriated end to the insertion site at the uterus, the tube was then amputated and removed in its entirety. This was done on the contralateral side. The tubes were the removed from the patient's abdomen. Excellent hemostasis was noted. The lateral ports were then moved under direct visualization with excellent hemostasis. All instruments were removed from the patient's abdomen. The fascia was closed using the #0 Vicryl on GI needle. The skin was closed using 4-0 Vicryl subcuticularly. All instruments were removed from the patient's vagina as well. The patient was taken out of the dorsal lithotomy position and placed in the supine position and taken to recovery in stable condition. Sponge, lap and needle counts were correct x2. [facility] Signed and Approved by: DR VLAD OMALLEY . 07/25/2021 07:40:00 [facility] Clinical Note 05-15-2021 Note Date & Type Note Facility 05-15-2021 Note PROCEDURE: US PREG B IOPHY W NON STRESS, 05/15/2021 12:56 PM EDT CLINICAL INDICATIONS: Encounter for third trimester , biophysical profile assessment. Contractions for one day. 2 para 1 Expected gestational age: 36 weeks 3 days Expected FARTUN: 06/09/2021. COMPARISON: 04/21/2021 TECHNIQUE: Limited third trimester obstetric sonogram, biophysical profile assessment. FINDINGS: Single intrauterine identified, cephalic presentation. body and cardiac motion noted, heart rate 136 bpm. Normal amniotic fluid index: 13.2 cm. BIOPHYSICAL PROFILE ASSESSMENT: movement: 2/2 tone: 2/2 breathin/2 fluid: 2/2 Total biophysical profile score: 8/8 biometry: Not performed. Placenta: Not evaluated. No previa. anatomic assessment: Not performed. Maternal adnexal region: Unremarkable. IMPRESSION: 1. Single living intrauterine , cephalic presentation. 2. Normal amniotic fluid index 13.2 cm 3. 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 Additional Source Comments INFORMATION SOURCE (unrecogn ized section and content) DATE CREATED AUTHOR 05/15/2019 [place] DATE CREATED AUTHOR AUTHOR'S ORGANIZ ATION 05/11/2022 [facility] DATE CREATED AUTHOR AUTHOR'S ORGANIZ ATION 10/30/2023 [facility] DATE CREATED AUTHOR AUTHOR'S ORGANIZ ATION 11/25/2023 [facility] DATE CREATED AUTHOR AUTHOR'S ORGANIZ ATION 01/03/2024 [facility] FOR RECORDS PERTAINING TO PATIENTS WHO ARE OR HAVE BEEN ENROLLED IN A CHEMICAL DEPENDENCY/SUBSTANCEABUSE PROGRAM, SOME INFORMATION MAY BE OMITTED. This clinical summary was aggregated from multiple sources. Caution should be exercised in using it in the provision of clinical care. This summary normalizes information from multiple sources, and as a consequence, information in this document may materially change the coding, format and clinical context of patient data. In addition, data may be omitted in some cases. CLINICAL DECISIONS SHOULD BE BASED ON THE PRIMARY CLINICAL RECORDS. [employer] provides no warranty or guarantee of the accuracy or completeness of information in this document.
--- NOTE | 2024-01-06 14:41 | XR_ITS ---
The [address] [address] Patient Name: JOE MCLEAN MRN: [id number] date: 1990 Sex: F Assigned Patient Location: ER Current Patient Location: ER Accession/Order Number: [id number] Exam Date: 01/06/2024 15:00 Report Date: 01/06/2024 15:49 At the request of: ANDREW HERNANDES Procedure: XR foot LT min 3V Exam: Radiographs: XR foot LT min 3V Reason for exam: pain Comparison: None XR/XR foot LT min 3V IMPRESSION: Unremarkable left foot radiographs. Electronically authenticated by: YAZMIN KHAN Date: 01/06/2024 15:49
--- NOTE | 2024-01-06 17:37 | ED_ITS ---
HPI HPI - Extremity Injury (Lower) General Chief Complaint: Extremity Injury, Lower Stated Complaint: LOWER EXTREMITY INJURY Time Seen by Provider: 01/06/24 15:57 Mode of arrival: walk-in History of Present Illness HPI Narrative: The patient complaining of left foot pain after someone that she did not mention who exactly stepped on her left foot She mentioned that this happened 5 days ago Related Data Previous Rx's ?Medication ?Instructions ?Recorded ibuprofen 600 mg tablet 600 mg PO TID PRN pain #10 tabs 01/06/24 Allergies Allergy/AdvReac Type Severity Reaction Status Date / Time sulfamethoxazole (From AdvReac Severe Anaphylaxis Verified 01/06/24 14:37 Bactrim) sulfate ion AdvReac Severe Anaphylaxis Verified 01/06/24 14:37 trimethoprim (From Bactrim) AdvReac Severe Anaphylaxis Verified 01/06/24 14:37 Opioid HPI Opioid Management Most Recent Pain and Opioid Data: No Data to Display Review of Systems ROS Status of ROS 10 or more systems reviewed and unremark able except as noted in history and below PFSH PFSH Social History Little interest or pleasure in doing things: not at all Feeling down, depressed, or hopeless: not at all Exam Narrative Exam Narrative: Nurses notes and vital signs reviewed and patient is not hypoxic. Left foot exam: No vascular injury detected no open wound the patient have tenderness upon palpation of the lateral metatarsals mostly the third fourth and fifth Mild edema to the area and there is no vascular injury detected General: Well-appearing and in no apparent distress. Skin: Warm, dry, no pallor noted. No rash. Head: Normocephalic, atraumatic. Neck: Supple, non-tender. Eye: Pupils are equal, round and EOMI. No scleral icterus. Ears, Nose, Mouth, and Throat: TM are clear, no nasal mucosal hypertrophy. Oral mucosa is moist, no posterior oropharynx erythema, uvula is mid-line Cardiovascular: Regular Rate and Rhythm without murmur, gallop or rub. Respiratory: No accessory muscle use or respiratory distress. Lungs are clear to auscultation, no wheezing, rales or rhonchi Chest Wall: no tenderness Back: No midline thoracic or lumbar vertebral tenderness. No CVA tenderness Musculoskeletal: normal ROM, no calf or popliteal tenderness, no lower extremity edema/swelling GI: Abdomen is soft, non-distended. Normal bowel sounds. No masses appreciated. No tenderness to palpation. No rebound, guarding, or rigidity noted. Neurological: A&O x4. No cranial nerve dysfunction observed. No truncal ataxia. Moves all extremities. Sensation intact. Psychiatric: Cooperative and interactive. Normal mood and affect. Constitutional Vital Signs, click to edit/add: Last Vital Signs Temp 99.5 F 01/06/24 14:38 Pulse 88 01/06/24 14:38 Resp 18 01/06/24 14:38 BP 133/92 H 01/06/24 14:38 Pulse Ox 99 01/06/24 14:38 Course Vital Signs Vital signs: Vital Signs Temperature 99.5 F 01/06/24 14:38 Pulse Rate 88 01/06/24 14:38 Respiratory Rate 18 01/06/24 14:38 Blood Pressure 133/92 H 01/06/24 14:38 Pulse Oximetry 99 01/06/24 14:38 Temperature 99.5 F 01/06/24 14:38 Pulse Rate 88 01/06/24 14:38 Respiratory Rate 18 01/06/24 14:38 Blood Pressure 133/92 H 01/06/24 14:38 Pulse Oximetry 99 01/06/24 14:38 MDM - Extremity Injury (Lower) MDM Narrative Medical decision making narrative: X-ray of the patient's foot showed no acute pathology The patient was discharged home with ibuprofen and supportive care Referred to her primary care doctor for follow-up with outpatient The patient is to follow up with primary care physician in next 2-3 days or to return to the emergency department should any of the signs or symptoms worsen or new symptoms develop. The patient agrees with the following Diagnosis and Justin atment plan and the patient will be discharged home. Discharge Plan Discharge Chief Complaint: Extremity Injury, Lower Clinical Impression: Contusion of foot Patient Disposition: Home, Self-Care Time of Disposition Decision: 16:00 Condition: Good Prescriptions / Home Meds: New ibuprofen 600 mg tablet 600 mg PO TID PRN (Reason: pain) Qty: 10 0RF Print Language: Yemeni Instructions: Foot Contusion (ED) Referrals: Physician,Non-Staff, MD [Primary Care Provider] - 1 week Discharge Date/Time: 01/06/24 16:11
== END 2024-01-06 16:11 | disposition home or self-care (01) ==
PROVIDERS: Emergency Provider Emergency Medicine
DX: S90.32XA Contusion of left foot, initial encounter (principal); X58.XXXA Exposure to other specified factors, initial encounter
CPT/HCPCS: 73630; 99283

== ENCOUNTER 2024-04-29 14:53 | Outpatient (REF) | payer MEDICAID, SELFPAY ==
[2024-05-02 21:10] LABS: Age Gdln ACOG Testing Note (.); HPV Aptima Positive (Negative); HPV Genotype 16 Negative (Negative); HPV Genotype 18,45 Negative (Negative); IGP, Aptima HPV, rfx 16/18,45 Note (.)
== END 2024-04-29 14:54 | disposition home or self-care (01) ==
LOC: LAB 14:53
PROVIDERS: Visit Provider Obstetrics & Gynecology
DX: Z01.419 Encounter for gynecological examination (general) (routine) without abnormal findings (principal)
CPT/HCPCS: 87624; 87625; 88175

== ENCOUNTER 2024-05-06 09:29 | Outpatient (OUT) | payer MEDICAID, SELFPAY ==
--- NOTE | 2024-05-06 09:31 | US_ITS ---
The [address] [address] Patient Name: JOE MCLEAN MRN: [id number] date: 1990 Sex: F Assigned Patient Location: US Current Patient Location: [place] Accession/Order Number: [id number] Exam Date: 05/06/2024 15:04 Report Date: 05/06/2024 15:08 At the request of: VLAD BARR DO Procedure: US pelvis w/ transvaginal COMPLETE PELVIC ULTRASOUND WITH TRANSVAGINAL IMAGING COMPARISON: 05/09/2022 CLINICAL DATA: Menorrhagia with heavy bleeding and cramping. Real-time ultrasound evaluation the pelvis was performed utilizing both a transabdominal and transvaginal approach. TRANSABDOMINAL: The urinary bladder is not fully distended. Estimated uterine size is approximately 6.1 x 3.4 x 3.7 cm. No focal myometrial abnormalities are identified. The endometrial lining is estimated at 7 - 8 mm. The ovaries were not seen. TRANSVAGINAL: Transvaginal imaging was performed to better evaluate the uterus and adnexa. By this approach, no focal myometrial abnormalities are visualized. The endometrial lining is estimated at 5 mm. The left ovary is not identified due to abundant bowel gas. The right ovary is seen and measures 2.6 x 1.9 x 2.1 cm. There is documentation of ovarian blood flow. No dominant adnexal cysts are identified. No free fluid is noted. US/US pelvis w/ transvaginal IMPRESSION: NONVISUALIZATION OF THE LEFT OVARY. NO OTHER SIGNIFICANT FINDINGS. Impression dictated by: Michelle Hooper M.D.05/06/2024 3:08 PM Dictation Location: [facility] Electronically authenticated by: [id number] Date: 05/06/2024 15:08
--- OUTSIDE RECORDS SUMMARY | 2024-05-06 09:42 | XMS_ITS | CCD ---
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 (Bld) 0.9 % Normal 0.2-2.0 [facility] Comment on above: Performed By: #### U MICRO, UACSIND #### [facility] [address] [address] [address] Lani Toledo EO # 0.1 103/ul Normal 0.0-0.7 [facility] Comment on above: Performed By: #### U MICRO, UACSIND #### [facility] [address] [address] [address] Lani Toledo Eosinophils/100 WBC (Bld) 1.4 % Normal 0.9-7.0 [facility] Comment on above: Performed By: #### U MICRO, UACSIND #### [facility] [address] [address] [address] Lani Toledo Erythrocyte distribution width (RBC) [Ratio] 16.7 % Critically high 11.0-15.0 [facility] Comment on above: Performed By: #### U MICRO, UACSIND #### [facility] [address] [address] [address] Lani Toledo Hematocrit (Bld) [Volume fraction] 37.9 % Normal 36.0-48.0 [facility] Comment on above: Performed By: #### U MICRO, UACSIND #### [facility] [address] [address] [address] Lani Toledo Hemoglobin (Bld) [Mass/Vol] 12.7 g/dL Normal 12.0-16.0 [facility] Comment on above: Performed By: #### U MICRO, UACSIND #### [facility] [address] [address] [address] Lani Toledo IG # 0.01 10e3/ul Normal 0.00-0.03 [facility] Comment on above: Performed By: #### U MICRO, UACSIND #### [facility] [address] [place] [address] Dr. Lani Toledo IG % 0.2 % Normal 0.0-0.5 [facility] Comment on above: Performed By: #### U MICRO, UACSIND #### [facility] [address] [place] [address] Dr. Lani Toledo LYMPH # 2.0 103/ul Normal 1.2-3.8 [facility] Comment on above: Performed By: #### U MICRO, UACSIND #### [facility] [address] [place] [address] Dr. Lani Toledo Lymphocytes/100 WBC (Bld) 35.6 % Normal 20.5-60.0 [facility] Comment on above: Performed By: #### U MICRO, UACSIND #### [facility] [address] [place] [address] Dr. Lani Toledo MANUAL DIFF REQ NO Normal [facility] Comment on above: Performed By: #### U MICRO, UACSIND #### [facility] [address] [place] [address] Dr. Lani Toledo MCH (RBC) [Entitic mass] 27.9 pg Normal 26.7-34.0 [facility] Comment on above: Performed By: #### U MICRO, UACSIND #### [facility] [address] [place] [address] Dr. Lani Toledo MCHC (RBC) [Mass/Vol] 33.5 g/dL Normal 29.9-35.2 [facility] Comment on above: Performed By: #### U MICRO, UACSIND #### [facility] [address] [place] [address] Dr. Lani Toledo MCV (RBC) [Entitic vol] 83.1 fL Normal 81.0-99.0 [facility] Comment on above: Performed By: #### U MICRO, UACSIND #### [facility] [address] [place] [address] Dr. Lani Toledo MONO # 0.5 103/ul Normal 0.3-0.8 [facility] Comment on above: Performed By: #### U MICRO, UACSIND #### [facility] [address] [place] [address] Dr. Lani Toledo Monocytes/100 WBC (Bld) 9.0 % Normal 1.7-12.0 [facility] Comment on above: Performed By: #### U MICRO, UACSIND #### [facility] [address] [place] [address] Dr. Lani Toledo NEUT # 2.9 103/ul Normal 1.4-6.5 [facility] Comment on above: Performed By: #### U MICRO, UACSIND #### [facility] [address] [place] [address] Dr. Lani Toledo Neutrophils/100 WBC (Bld) 52.9 % Normal 43.0-75.0 [facility] Comment on above: Performed By: #### U MICRO, UACSIND #### [facility] [address] [place] [address] Dr. Lani Toledo Platelet mean volume (Bld) [Entitic vol] 9.4 fL Critically low 9.5-13.5 [facility] Comment on above: Performed By: #### U MICRO, UACSIND #### [facility] [address] [place] [address] Dr. Lani Toledo PLT 288 103/ul Normal 150-450 [facility] Comment on above: Performed By: #### U MICRO, UACSIND #### [facility] [address] [place] [address] Dr. Lani Toledo RBC 4.56 106/ul Normal 4.20-5.40 [facility] Comment on above: Performed By: #### U MICRO, UACSIND #### [facility] [address] [place] [address] Dr. Lani Toledo WBC 5.5 103/ul Normal 4.0-11.0 [facility] Comment on above: Performed By: #### U MICRO, UACSIND #### [facility] [address] [place] [address] Dr. Lani Toledo FREE T4on 05-09-2022 Free T4 [Mass/Vol] 1.11 ng/dL Normal 0.76-1.46 [facility] Comment on above: Performed By: #### F T4 #### [facility] [address] [place] [address] Dr. Lani Toledo GLYCOHEMOGLOBIN A1Con 2022 ADA RECOMMENDATION SEE BELOW Normal [facility] Comment on above: Result Comment: ADA RECOMMENDED LIMIT 4.0 - 6.0 ADA THERAPEUTIC TARGET < 7.0 ACTION SUGGESTED > 7.0 Performed By: #### A 1C #### [facility] [address] [place] [address] Dr. Lani Toledo Glucose [Mass/Vol] 108 mg/dL Normal [facility] Comment on above: Performed By: #### A 1C #### [facility] [address] [place] [address] Dr. Lani Toledo HbA1c (Bld) [Mass fraction] 5.4 % Normal 4.5-6.2 [facility] Comment on above: Performed By: #### A 1C #### [facility] [address] [place] [address] Dr. Lani Toledo PROTIMEon 05-09-2022 INR Coag (PPP) [Relative time] 1.10 {INR} Normal [facility] Comment on above: Performed By: #### P T, PTT #### [facility] [address] [place] [address] Dr. Lani Toledo INR GUIDELINES SEE BELOW Normal [facility] Comment on above: Result Comment: ESTRELLA RED INR: 2.0 - 3.0 CONDITIONS NOT LISTED BELOW 2.5 - 3.5 FOR PROSTHETIC HEART VALVE REPLACEMENT 2.5 - 3.5 RECURRENT THROMBOSIS Performed By: #### P T, PTT #### [facility] [address] [place] [address] Dr. Lani Toledo PT Coag (PPP) [Time] 11.6 s Normal 9.0-11.6 [facility] Comment on above: Performed By: #### P T, PTT #### [facility] [address] [place] [address] Dr. Lani Toledo PTTon 05-09-2022 aPTT Coag (Bld) [Time] 28.2 s Normal 22.3-36.2 [facility] Comment on above: Performed By: #### P T, PTT #### [facility] [address] [place] [address] Dr. Lani Toledo TSHon 05-09-2022 TSH 1.068 uIU/mL Normal 0.358-3.740 [facility] Comment on above: Performed By: #### U MICRO, UACSIND #### [facility] [address] [place] [address] Dr. Lani Toledo US PELVIS AND TRANSVAGon [...] by: DAVID GARRETT Date: 2022-05-09 12:56 Normal [facility] PAP ACOG PANEL 2: 30 to 65on 04-26-2022 HPV Genotype 16 Negative Normal Negative [facility] Comment on above: Performed By: #### [id number] #### [facility] [address] [address] [address] Lani Toledo HPV Genotype 18,45 Negative Normal Negative [facility] Comment on above: Performed By: #### 4 [id number] #### [facility] [address] [address] [address] Lani Toledo . . Normal [facility] Comment on above: Result Comment: Perf ormed at: [facility] Performed By: #### [id number] #### [facility] [address] [place] [address] Dr. Lani Toledo Age Gdln ACOG Testing 30-65 Normal [facility] Comment on above: Performed By: #### [id number] #### [facility] [address] [address] [address] Lani Toledo DIAGNOSIS: Comment Normal [facility] Comment on above: Result Comment: NEGA TIVE FOR INTRAEPITHELIAL LESION OR MALIGNANCY. Performed at: [facility] Performed By: #### [id number] #### [facility] [address] [place] [address] Dr. Lani Toledo HPV Aptima Positive Abnormal Negative [facility] Comment on above: Result Comment: This nucleic acid amplification test detects fourteen high-risk HPV types (16,18,31,33,35,39,45,51,52,56,58,59,66,68) without differentiation. Performed at: =G Performed By: #### 4 [id number] #### [facility] [address] [place] [address] Dr. Lani Toledo HPV Genotype Reflex Comment Normal [facility] Comment on above: Result Comment: Alex conner, see HPV Genotype results. Performed at: [facility] Performed By: #### [id number] #### [facility] [address] [place] [address] Dr. Lani Toledo Methodology: Comment Normal [facility] Comment on above: Result Comment: This liquid based ThinPrep(R) pap test was screened with the use of an image guided system. Performed at: [facility] Performed By: #### [id number] #### [facility] [address] [place] [address] Dr. Lani Toledo Note: Comment Normal [facility] Comment on above: Result Comment: The Pap smear is a screening test designed to aid in the detection of premalignant and malignant conditions of the uterine cervix. It is not a diagnostic procedure and should not be used as the sole means of detecting cervical cancer. Both false-positive and false-negative reports do occur. . Performed at: [facility] Performed By: #### [id number] #### [facility] [address] [place] [address] Dr. Lani Toledo Performed by: Comment Normal [facility] Comment on above: Result Comment: Rip Glaindo, Wallpaper Hanger (ASCP) Performed at: [facility] Performed By: #### 4 [id number] #### [facility] [address] [place] [address] Dr. Lani Toledo Specimen adequacy: Comment Normal [facility] Comment on above: Result Comment: Sati sfactory for evaluation. Endocervical and/or squamous metaplastic cells (endocervical component) are present. Performed at: [facility] Performed By: #### 4 [id number] #### [facility] [address] [place] [address] Dr. Lani Toledo CHLAMYDIA/GONOCOCCUS ADORE (SW AB/URINE/PAPon 04-21-2022 Chlamydia trachomatis, ADORE Negative Normal Negative [facility] Comment on above: Performed By: #### U MICRO, UACSIND #### [facility] [address] [place] [address] Dr. Lani Toledo Neisseria gonorrhoeae, ADORE Negative Normal Negative [facility] Comment on above: Performed By: #### U MICRO, UACSIND #### [facility] [address] [place] [address] Dr. Lani Toledo VAGINITIS/VAGINOSIS DNA PROB Percy 04-20-2022 Samanta species Negative Normal Negative [facility] Comment on above: Performed By: #### U MICRO, UACSIND #### [facility] [address] [place] [address] Dr. Lani Toledo Gardnerella vaginalis Negative Normal Negative [facility] Comment on above: Performed By: #### U MICRO, UACSIND #### [facility] [address] [place] [address] Dr. Lani Toledo Trichomonas vaginalis Negative Normal Negative [facility] Comment on above: Performed By: #### U MICRO, UACSIND #### [facility] [address] [place] [address] Dr. Lani Toledo CBC AUTO DIFFon 07-22-2021 BASO # 0.1 103/ul Normal 0.0-0.1 [facility] Comment on above: Performed By: #### U MICRO, UACSIND #### [facility] [address] [place] [address] Dr. Lani Toledo Basophils/100 WBC (Bld) 0.7 % Normal 0.2-2.0 [facility] Comment on above: Performed By: #### U MICRO, UACSIND #### [facility] [address] [place] [address] Dr. Lani Toledo EO # 0.2 103/ul Normal 0.0-0.7 [facility] Comment on above: Performed By: #### U MICRO, UACSIND #### [facility] [address] [place] [address] Dr. Lani Toledo Eosinophils/100 WBC (Bld) 1.5 % Normal 0.9-7.0 [facility] Comment on above: Performed By: #### U MICRO, UACSIND #### [facility] [address] [place] [address] Dr. Lani Toledo Erythrocyte distribution width (RBC) [Ratio] 14.9 % Normal 11.0-15.0 [facility] Comment on above: Performed By: #### U MICRO, UACSIND #### [facility] [address] [place] [address] Dr. Lani Toledo Hematocrit (Bld) [Volume fraction] 41.6 % Normal 36.0-48.0 [facility] Comment on above: Performed By: #### U MICRO, UACSIND #### [facility] [address] [address] [address] Lani Toledo Hemoglobin (Bld) [Mass/Vol] 13.3 g/dL Normal 12.0-16.0 [facility] Comment on above: Performed By: #### U MICRO, UACSIND #### [facility] [address] [address] [address] Lani Toledo IG # 0.04 10e3/ul Critically high 0.00-0.03 [facility] Comment on above: Performed By: #### U MICRO, UACSIND #### [facility] [address] [place] [address] Dr. Lani Toledo IG % 0.4 % Normal 0.0-0.5 [facility] Comment on above: Performed By: #### U MICRO, UACSIND #### [facility] [address] [address] [address] Lani Toledo LYMPH # 2.6 103/ul Normal 1.2-3.8 [facility] Comment on above: Performed By: #### U MICRO, UACSIND #### [facility] [address] [place] [address] Dr. Lani Toledo Lymphocytes/100 WBC (Bld) 26.0 % Normal 20.5-60.0 [facility] Comment on above: Performed By: #### U MICRO, UACSIND #### [facility] [address] [address] [address] Lani Toledo MANUAL DIFF REQ NO Normal [facility] Comment on above: Performed By: #### U MICRO, UACSIND #### [facility] [address] [address] [address] Lani Toledo MCH (RBC) [Entitic mass] 28.9 pg Normal 26.7-34.0 [facility] Comment on above: Performed By: #### U MICRO, UACSIND #### [facility] [address] [address] [address] Lani Toledo MCHC (RBC) [Mass/Vol] 32.0 g/dL Normal 29.9-35.2 [facility] Comment on above: Performed By: #### U MICRO, UACSIND #### [facility] [address] [place] [address] Dr. Lani Toledo MCV (RBC) [Entitic vol] 90.2 fL Normal 81.0-99.0 [facility] Comment on above: Performed By: #### U MICRO, UACSIND #### [facility] [address] [place] [address] Dr. Lani Toledo MONO # 0.6 103/ul Normal 0.3-0.8 [facility] Comment on above: Performed By: #### U MICRO, UACSIND #### [facility] [address] [place] [address] Dr. Lani Toledo Monocytes/100 WBC (Bld) 5.9 % Normal 1.7-12.0 [facility] Comment on above: Performed By: #### U MICRO, UACSIND #### [facility] [address] [place] [address] Dr. Lani Toledo NEUT # 6.5 103/ul Normal 1.4-6.5 [facility] Comment on above: Performed By: #### U MICRO, UACSIND #### [facility] [address] [place] [address] Dr. Lani Toledo Neutrophils/100 WBC (Bld) 65.5 % Normal 43.0-75.0 [facility] Comment on above: Performed By: #### U MICRO, UACSIND #### [facility] [address] [place] [address] Dr. Lani Toledo Platelet mean volume (Bld) [Entitic vol] 9.8 fL Normal 9.5-13.5 [facility] Comment on above: Performed By: #### U MICRO, UACSIND #### [facility] [address] [place] [address] Dr. Lani Toledo PLT 369 103/ul Normal 150-450 [facility] Comment on above: Performed By: #### U MICRO, UACSIND #### [facility] [address] [address] [address] Lani Toledo RBC 4.61 106/ul Normal 4.20-5.40 [facility] Comment on above: Performed By: #### U MICRO, UACSIND #### [facility] [address] [address] [address] Lani Toledo WBC 10.0 103/ul Normal 4.0-11.0 [facility] Comment on above: Performed By: #### U MICRO, UACSIND #### [facility] [address] [place] [address] Dr. Lani Toledo PREG QUANT HCGon 07-22-2021 HCG QUANT <1 Normal [facility] Comment on above: Performed By: #### U MICRO, UACSIND #### [facility] [address] [place] [address] Dr. Lani Toledo HCG RANGE SEE BELOW Normal [facility] Comment on above: Result Comment: 5-50 0-1 WEEK 40-300 1-2 WEEKS 100-1,000 2-3 WEEKS 500-6,000 3-4 WEEKS 5,000-200,000 1-2 MONTHS 10,000-100,000 2-3 MONTHS 3,000-50,000 2ND TRIMESTER 1,000-50,000 3RD TRIMESTER Performed By: #### U MICRO, UACSIND #### [facility] [address] [place] [address] Dr. Lani Toledo Cov[facility]on 07-03 SARS-CoV-2 (COVID-19) RNA ADORE+probe Ql (Unsp spec) Not detected Normal NOT DETECTED [facility] Comment on above: Result Comment: This test is not yet approved or cleared by the [place] FDA. When there are no FDA-approved or cleared tests available, and other criteria are met, FDA can make tests available under an emergency access mechanism called an Emergency Use Authorization (EUA). The EUA for this test is supported by the [place] of Health and Human Service's (HHS's) declaration [...] SARS-CoV-2. Performed By: #### C VDTBH #### [facility] [address] [place] [address] Dr. Lani Toledo CANNABINOID (THC) CONFIRMATI ON, URINEon 05-26-2021 Cannabinoid Positive Abnormal [facility] Comment on above: Performed By: #### T HCCONF #### [facility] [address] [place] [address] Dr. Lani Toledo Carboxy THC GC/MS Conf 201 ng/mL Normal Cutoff=10 [facility] Comment on above: Performed By: #### T HCCONF #### [facility] [address] [place] [address] Dr. Lani Toledo DRUG SCREEN RAPID (URINE)on 05-15-2021 AMP Negative Normal NEGATIVE [facility] Comment on above: Performed By: #### D RUGRPD #### [facility] [address] [place] [address] Dr. Lani Toledo BAR Negative Normal NEGATIVE [facility] Comment on above: Performed By: #### D RUGRPD #### [facility] [address] [place] [address] Dr. Lani Toledo BUP Negative Normal NEGATIVE [facility] Comment on above: Performed By: #### D RUGRPD #### [facility] [address] [place] [address] Dr. Lani Toledo BZO Negative Normal NEGATIVE [facility] Comment on above: Performed By: #### D RUGRPD #### [facility] [address] [place] [address] Dr. Lani Toledo SIGIFREDO Negative Normal NEGATIVE [facility] Comment on above: Performed By: #### D RUGRPD #### [facility] [address] [place] [address] Dr. Lani Toledo CUT-OFFS SEE BELOW Normal [facility] Comment on above: Result Comment: AMP (Amphetamine): 500ng/mL, BAR (Barbituates): 200 ng/mL, BZO (Benzodiazepines): 150 ng/mL, BUP (Buprenorphine): 10 ng/mL, SIGIFREDO (Cocaine): 150 ng/mL, mAMP (Methamphetamine): 500 ng/mL, MTD (Methadone): 200 ng/mL, OPI (Opiates): 100 ng/mL, OXY (Oxycodone): 100 ng/mL, PCP (Phencyclidine): 25 ng/mL, PPX (Propoxyphene): 300 ng/mL, THC (Cannabinoids): 50 ng/mL, TCA (Trycyclic Antidepressants): 300 ng/mL Performed By: #### D RUGRPD #### [facility] [address] [place] [address] Dr. Lani Toledo DRUG CUT HEADER DRUG CLASS TEST SYSTEM CUT-OFF CONCENTRATIONS ARE FOLLOWS: Normal [facility] Comment on above: Performed By: #### D RUGRPD #### [facility] [address] [place] [address] Dr. Lani Toledo mAMP Negative Normal NEGATIVE [facility] Comment on above: Performed By: #### D RUGRPD #### [facility] [address] [place] [address] Dr. Lani Toledo MTD Negative Normal NEGATIVE [facility] Comment on above: Performed By: #### D RUGRPD #### [facility] [address] [place] [address] Dr. Lani Toledo OPI Negative Normal NEGATIVE [facility] Comment on above: Performed By: #### D RUGRPD #### [facility] [address] [place] [address] Dr. Lani Toledo OXY Negative Normal NEGATIVE [facility] Comment on above: Performed By: #### D RUGRPD #### [facility] [address] [place] [address] Dr. Lani Toledo PCP Negative Normal NEGATIVE [facility] Comment on above: Performed By: #### D RUGRPD #### [facility] [address] [address] [address] Lani Toledo PPX Negative Normal NEGATIVE [facility] Comment on above: Performed By: #### D RUGRPD #### [facility] [address] [place] [address] Dr. Lani Toledo TCA Negative Normal NEGATIVE [facility] Comment on above: Performed By: #### D RUGRPD #### [facility] [address] [address] [address] Lani Toledo THC Positive Abnormal NEGATIVE [facility] Comment on above: Performed By: #### D RUGRPD #### [facility] [address] [place] [address] Dr. Lani Tloedo UA (CLEAN/CATCH) FOREST MANAGEMENT TEACHER/MICRO I F IND.on 05-15-2021 Bilirubin Ql (U) Negative Normal NEGATIVE [facility] Comment on above: Performed By: #### U MICRO, UACSIND #### [facility] [address] [place] [address] Dr. Lani Toledo Clarity (U) CLEAR Normal CLEAR [facility] Comment on above: Performed By: #### U MICRO, UACSIND #### [facility] [address] [place] [address] Dr. Lani Toledo Color (U) LT. YELLOW Normal YELLOW [facility] Comment on above: Performed By: #### U MICRO, UACSIND #### [facility] [address] [place] [address] Dr. Lani Toledo Glucose Ql (U) Negative Normal NEGATIVE [facility] Comment on above: Performed By: #### U MICRO, UACSIND #### [facility] [address] [place] [address] Dr. Lani Toledo Hemoglobin Ql (U) TRACE-INTACT Abnormal NEGATIVE [facility] Comment on above: Performed By: #### U MICRO, UACSIND #### [facility] [address] [place] [address] Dr. Lani Toledo Ketones Ql (U) Negative Normal NEGATIVE [facility] Comment on above: Performed By: #### U MICRO, UACSIND #### [facility] [address] [place] [address] Dr. Lani Toledo LEUKOCYTES Negative Normal NEGATIVE [facility] Comment on above: Performed By: #### U MICRO, UACSIND #### [facility] [address] [address] [address] Lani Toledo Nitrite Ql (U) Negative Normal NEGATIVE [facility] Comment on above: Performed By: #### U MICRO, UACSIND #### [facility] [address] [address] [address] Lani Toledo pH (U) 8.5 [pH] Normal 5-9 [facility] Comment on above: Performed By: #### U MICRO, UACSIND #### [facility] [address] [place] [address] Dr. Lani Toledo SPEC GRAVITY 1.020 Normal 1.005-<=1.025 [facility] Comment on above: Performed By: #### U MICRO, UACSIND #### [facility] [address] [address] [address] Lani Toledo UA PROTEIN Negative Normal NEGATIVE/ TRACE [facility] Comment on above: Performed By: #### U MICRO, UACSIND #### [facility] [address] [place] [address] Dr. Lani Toledo UR MICRO IND INDICATED Normal [facility] Comment on above: Performed By: #### U MICRO, UACSIND #### [facility] [address] [place] [address] Dr. Lani Toledo Urobilinogen Qn (U) 0.2 {Glynn'U}/dL Normal 0.2 - 1. 0 [facility] Comment on above: Performed By: #### U MICRO, UACSIND #### [facility] [address] [place] [address] Dr. Lani Toledo URINE MICROSCOPIC ONLYon BACTERIA TRACE Abnormal NONE SEEN [facility] Comment on above: Performed By: #### U MICRO, UACSIND #### [facility] [address] [address] [address] Lani Toledo Bacteria identified Cx Nom (U) NOT INDICATED Normal [facility] Comment on above: Performed By: #### U MICRO, UACSIND #### [facility] [address] [address] [address] Lani Toledo CAST NONE SEEN Normal NONE SEEN [facility] Comment on above: Performed By: #### U MICRO, UACSIND #### [facility] [address] [address] [address] Lani Toledo Crystals LM Nom (Urine sed) NONE SEEN Normal NONE SEEN [facility] Comment on above: Performed By: #### U MICRO, UACSIND #### [facility] [address] [place] [address] Dr. Lani Toledo Epithelial cells LM Ql (Urine sed) FEW Abnormal NONE SEEN /RARE [facility] Comment on above: Performed By: #### U MICRO, UACSIND #### [facility] [address] [place] [address] Dr. Lani Toledo MUCOUS TRACE Abnormal NONE SEEN [facility] Comment on above: Performed By: #### U MICRO, UACSIND #### [facility] [address] [place] [address] Dr. Lani Toledo RBC 2-5 Abnormal 0-2 [facility] Comment on above: Performed By: #### U MICRO, UACSIND #### [facility] [address] [place] [address] Dr. Lani Toledo WBC 0-2 Abnormal NONE SEEN [facility] Comment on above: Performed By: #### U MICRO, UACSIND #### [facility] [address] [place] [address] Dr. Lani Toledo Cult,Urineon 05-15-2019 Cult,Urine Specimen Description .CLEAN CATCH URINE Special Requests NOT REPORTED Culture NO SIGNIFICANT GROWTH Report Status FINAL 05/14/2019 Normal [facility] Comment on above: Performed By: #### U RC #### [address] [address] Textile Broker: Erik Judge MD Vital Signs Date Time Vital Sign Value Performing Clinician [facility] 04-29-2024 10:51-0500 Body mass index (BMI) [Ratio] 21.74 kg/m2 Prem Lyssa DO Work Phone: [facility] 04-29-2024 10:51-0500 Body weight 62.96 kg Prem Lyssa DO Work Phone: [facility] 04-29-2024 10:51-0500 Diastolic blood pressure 82 mm[Hg] Prem Lyssa DO Work Phone: [facility] 04-29-2024 10:51-0500 Systolic blood pressure 138 mm[Hg] Prem Lyssa DO Work Phone: [facility] 10-29-2023 08:40-0400 Body height 170.2 cm Eva Sloan MD Work Phone: [facility] 10-29-2023 08:40-0400 Body mass index (BMI) [Ratio] 23.49 kg/m2 Eva Sloan MD Work Phone: [facility] 10-29-2023 08:40-0400 Body weight 68.04 kg Eva Sloan MD Work Phone: [facility] 10-11-2023 12:16-0400 Body height 170.2 cm [facility] 1 [facility] 10-11-2023 12:16-0400 Body mass index (BMI) [Ratio] 23.49 kg/m2 [facility] 1 [facility] 10-11-2023 12:16-0400 Body weight 68.04 kg [facility] 1 [facility] 10-02-2023 10:59-0400 Body height 170.2 cm Eva Sloan MD Work Phone: [facility] 10-02-2023 10:59-0400 Body mass index (BMI) [Ratio] 23.81 kg/m2 Eva Sloan MD Work Phone: [facility] 10-02-2023 10:59-0400 Body weight 68.95 kg Eva Sloan MD Work Phone: [facility] [employer] 10-02-2023 10:59-0400 Diastolic blood pressure 81 mm[Hg] Eva Sloan MD Work Phone: [facility] [employer] 10-02-2023 10:59-0400 Heart rate 71 /min Eva Sloan MD Work Phone: [facility] [employer] 10-02-2023 10:59-0400 Systolic blood pressure 141 mm[Hg] Eva Sloan MD Work Phone: [facility] [employer] Encounters Encounter Date Encounter Type Care Provider Facility Start: 04-29-2024 End: 04-29-2024 Bamboo flowsheet Prem Lyssa DO Work Phone: [facility] Start: 04-29-2024 End: 05-02-2024 Bamboo flowsheet Prem Lyssa DO Work Phone: [facility] Start: 04-29-2024 End: 05-02-2024 Clinisync Result Encounter Prem Lyssa DO Work Phone: [facility] Unsolicited Start: 04-29-2024 End: 04-29-2024 Patient encounter procedure Prem Lyssa DO Work Phone: [facility] Work Phone: Start: 04-29-2024 End: 04-29-2024 Periodic preventive med est patient 18-39 yrs Prem Lyssa DO Work Phone: [facility] Comment on above: Well woman exam with routine gynecological exam; Menorrhagia with regular cycle Start: 04-29-2024 End: 04-29-2024 ambulatory PREM LYSSA Not Available Start: 04-18-2024 End: 04-20-2024 Telephone encounter Mila Schneider MA [facility] Start: 04-18-2024 End: 04-18-2024 ambulatory NICOLE GUAMAN Not Available Start: 04-15-2024 End: 04-15-2024 Bamboo flowsheet Nicole Richa Guaman PA Work Phone: [facility] Start: 04-15-2024 End: 04-15-2024 Bamboo flowsheet Nicoleadrian Ramirezans PA Work Phone: [facility] Start: 04-15-2024 End: 04-15-2024 ambulatory NICOLE L DENIZ Not Available Start: 04-15-2024 End: 04-15-2024 Office outpatient visit 25 minutes Nicole Richa Guaman PA Work Phone: [facility] Comment on above: Acne vulgaris (Prima ry Dx) Start: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 continue to use it routinely. 8. Nothing to eat or drink (not even water, gum, mints, or hard candy!) AFTER midnight prior to your surgery. 9. Take only medications that you are instructed to on the morning of surgery with a TINY SIP OF WATER. 10. Choose a responsible adult that will be able to drive you home when you are discharged from your hospital stay for your surgery and can stay with you in your home for 24 hours after your procedure. You must NOT drive any vehicle or operate any machinery for 24 hours after surgery. 11. When you dress for your appointment, please wear loose fitting clothing that is appropriate to accommodate your surgical area procedure. BRING WITH YOU ANY DEVICES YOU MAY NEED: MEHDI hose, ice machine, sling/swath, brace or special shoe, oversized zip-up or button up shirt, CPAP machine if staying overnight. 12. Do NOT wear jewelry, watches, or any piercings or metal for surgery- leave these valuables and money at home. 13. Do NOT wear contact lenses for surgery- glasses are okay if needed. 14. The anesthesiologist will talk with you the day of surgery and will ask you to sign a Consent Form. 15. Refrain from smoking or any type of tobacco use for at least 8 hours and marijuana for 24 hours prior to arrival for your surgery. 16. If a GREEN BLOOD band is given to you, please bring it with you for the day of surgery. 17. Notify your surgeon if you develop any illness before your surgery. 18. If you are staying overnight, please DO NOT BRING your home medications with you. 19. If you have any questions prior to surgery, please call the Preadmission Testing office at [phone], Mon.-Fri. 7 a.m.-3 p.m. Leave a voicemail if needed. Pre-Surgery Instructions: Medication Instructions Bacillus coagulans-inulin (PROBIOTIC WITH PREBIOTIC) 1 billion-250 cell-mg capsule Stop taking 0 days prior to procedure DEPO-PROVERA 150 mg/mL syringe Check with prescribing doctor for instructions ondansetron ODT (ZOFRAN ODT) 4 mg disintegrating tablet Stop taking 0 days prior to procedure PROBIOTIC, S.BOULARDII, 250 mg capsule Stop taking 0 days prior to procedure [facility] 10-11-2023 Miscellaneous Notes Preoperative Education Checklist- General Surgery date: 10/15/23 Surgery time: 10a Arrival time: 8a 1. Bring a photo ID and your insurance card with you the day of surgery. You will check in at the main lobby of the [facility]- registration desk is straight ahead as soon as you walk in. Tell them you are here for surgery. 2. If you have a Living Will/Durable Power of Manager Of Business Operations for Health Care that is not on file here, please bring a copy the day of surgery. 3. Please shower/bathe the night before surgery with the provided soap or wipes. Do not shower the morning of surgery- you will do use wipes when you arrive here at the hospital before getting into your surgical gown. Do not shave the area of your procedure for 2 days prior to your surgery. 4. NO powder, lotion, perfume/cologne, aftershave, make-up, deodorant, or hair products after you have bathed. 5. NO nail cook islander/acrylic on at least one finger. If you are having a hand, wrist or foot surgery then all nail cook islander and artificial/acrylic nails must be removed from that hand or foot. 6. Avoid ALL Aspirin and non-steroidal anti-inflammatory drugs and certain vitamins (Ibuprofen, Advil, Aleve, Excedrin, Meloxicam, Celebrex, fish/krill oil, etc.) for 7 days prior to surgery as instructed by your surgeon and/or your prescribing doctor. Tylenol IS ALLOWED. If you are on Ticlid, Xarelto, Eliquis, Pradaxa, Plavix or Coumadin, please check with your prescribing doctor for instructions for when to stop them. 7. If you use an inhaler, continue to use it routinely. 8. Nothing to eat or drink (not even water, gum, mints, or hard candy!) AFTER midnight prior to your surgery. 9. Take only medications that you are instructed to on the morning of surgery with a TINY SIP OF WATER. 10. Choose a responsible adult that will be able to drive you home when you are discharged from your hospital stay for your surgery and can stay with you in your home for 24 hours after your procedure. You must NOT drive any vehicle or operate any machinery for 24 hours after surgery. 11. When you dress for your appointment, please wear loose fitting clothing that is appropriate to accommodate your surgical area procedure. BRING WITH YOU ANY DEVICES YOU MAY NEED: MEHDI hose, ice machine, sling/swath, brace or special shoe, oversized zip-up or button up shirt, CPAP machine if staying overnight. 12. Do NOT wear jewelry, watches, or any piercings or metal for surgery- leave these valuables and money at home. 13. Do NOT wear contact lenses for surgery- glasses are okay if needed. 14. The anesthesiologist will talk with you the day of surgery and will ask you to sign a Consent Form. 15. Refrain from smoking or any type of tobacco use for at least 8 hours and marijuana for 24 hours prior to arrival for your surgery. 16. If a GREEN BLOOD band is given to you, please bring it with you for the day of surgery. 17. Notify your surgeon if you develop any illness before your surgery. 18. If you are staying overnight, please DO NOT BRING your home medications with you. 19. If you have any questions prior to surgery, please call the Preadmission Testing office at [phone], Mon.-Fri. 7 a.m.-3 p.m. Leave a voicemail if needed. Pre-Surgery Instructions: Medication Instructions Bacillus coagulans-inulin (PROBIOTIC WITH PREBIOTIC) 1 billion-250 cell-mg capsule Stop taking 0 days prior to procedure DEPO-PROVERA 150 mg/mL syringe Check with prescribing doctor for instructions ondansetron ODT (ZOFRAN ODT) 4 mg disintegrating tablet Stop taking 0 days prior to procedure PROBIOTIC, S.BOULARDII, 250 mg capsule Stop taking 0 days prior to procedure documented in this encounter [facility] [employer] 10-02-2023 History of Presen t illness Narrative Images from the original note were not included. Chief Complaint: Epidermoid cyst x2 History of Present Illness: Tapan Mclean is a 33 y.o. female presents to the office with epidermoid cyst x2. She notes approximately 2 months ago, she developed to cysts on her face. One was located anterior to her right ear, preauricular area. She states that the 1 by her ear would get inflamed and subsequently drained. She notes clear or yellow or white drainage. The cyst is now smaller in size. It is approximately 1 cm. She also notes a similar cyst on her left cheek, she states that this 1 does not bother her so much. It has been stable in size. It has not been inflamed. It has not drained. HPI Review of Systems Constitutional: Negative for fever and chills. Respiratory: Negative for shortness of breath. Cardiovascular: Negative for chest pain and palpitations. Gastrointestinal: Negative for nausea, vomiting and abdominal pain. Genitourinary: Negative for dysuria and difficulty urinating. Skin: Negative for rash and wound. Epidermoid cyst x2 Allergic/Immunologic: Negative for immunocompromised state. Neurological: Negative for weakness and light-headedness. Hematological: Does not bruise/bleed easily. Psychiatric/Behavioral: Negative for behavioral problems and confusion. Past Medical History: Diagnosis Date Abnormal Pap smear of cervix Alcohol abuse Anxiety Asthma Depression GERD (gastroesophageal reflux disease) HPV (human papilloma virus) infection IBS (irritable bowel syndrome) Joint pain Kidney stone Kidney stone Low back pain Scoliosis Sinus problem Sinusitis, chronic Urinary tract infection Past Surgical History: Procedure Laterality Date ADENOIDECTOMY CYST REMOVAL CYSTOSCOPY UM SOLUTION N/A 11/25/2018 Performed by Jamin Pretty MD at [facility] EXCISION LESION Right 02/12/2017 Performed by Mazin Cade DO at [facility] TONSILLECTOMY TONSILLECTOMY ADENOIDECTOMY Bilateral 09/25/2016 Performed by Oscar Galindo MD at [facility] TUBAL LIGATION WISDOM TOOTH EXTRACTION Allergies Allergen Reactions Bactrim [Sulfamethoxazole-Trimethoprim] Facial Swelling Throat swelling Cat Dander Other (See Comments) Sneezing, itchy, watery eyes Pyridium [Phenazopyridine] Dizziness NAUSEA, SHAKY AND DIZZINESS. Sulfa (Sulfonamide Antibiotics) Current Outpatient Medications: Bacillus coagulans-inulin (PROBIOTIC WITH PREBIOTIC) 1 billion-250 cell-mg capsule, Take 1 Gummy by mouth once daily, Disp: , Rfl: DEPO-PROVERA 150 mg/mL syringe, 1 mL Intramuscular every 3 months, Disp: , Rfl: ondansetron ODT (ZOFRAN ODT) 4 mg disintegrating tablet, Dissolve 1 tablet (4 mg total) on tongue every 8 (eight) hours as needed for nausea for up to 6 doses., Disp: 6 tablet, Rfl: 0 PROBIOTIC, S.BOULARDII, 250 mg capsule, Take by mouth daily., Disp: , Rfl: Social History Socioeconomic History Marital status: Single Spouse name: Not on file Number of children: Not on file Years of education: Not on file Highest education level: Not on file Occupational History Not on file Tobacco Use Smoking status: Every Day Current packs/day: 1.00 Average packs/day: 1 pack/day for 10.0 years (10.0 ttl pk-yrs) Types: Cigarettes Smokeless tobacco: Never Tobacco comments: Not interested in quitting Vaping Use Vaping status: Some Days Substances: THC Devices: Disposable Substance and Sexual Activity Alcohol use: Yes Alcohol/week: 12.0 standard drinks of alcohol Types: 12 Cans of beer per week Comment: two 6-packs a week Drug use: Yes Types: Marijuana Comment: smokes DAILY Sexual activity: Yes Partners: Male control/protection: Injection Other Topics Concern Coffee No Tea No Carbonated Beverages Yes Chocolate Yes Social History Narrative Not on file Social Determinants of Health Financial Resource Strain: Not on file Food Insecurity: No Food Insecurity (10/02/2023) Hunger Screening Food Insecurity - Worry: Never True Food Insecurity - Inability: Never True Transportation Needs: Not on file Physical Activity: Not on file Stress: Not on file Social Connections: Not on file Interpersonal Safety: Not on file Housing Instability: Not on file Family History Problem Relation Age of Onset Heart disease Mother Cancer Mother Cervical cancer Mother Ovarian cancer Mother No Known Problems Father Heart disease Maternal Grandmother Hypertension Maternal Grandmother Cancer Other bone cancer Brain cancer Other Physical Exam Vitals reviewed. Constitutional: Appearance: Normal appearance. HENT: Head: Normocephalic and atraumatic. Eyes: Pupils: Pupils are equal, round, and reactive to light. Cardiovascular: Rate and Rhythm: Normal rate. Pulmonary: Effort: Pulmonary effort is normal. Abdominal: General: There is no distension. Palpations: Abdomen is soft. Tenderness: There is no abdominal tenderness. Musculoskeletal: General: No swelling. Skin: General: Skin is warm and dry. Comments: Epidermoid cyst right preauricular area, 1 cm in size Left cheek epidermoid cyst, less than 1 cm in size. Neurological: Mental Status: She is alert and oriented to person, place, and time. Mental status is at baseline. Psychiatric: Mood and Affect: Mood normal. Behavior: Behavior normal. Vital Signs: Blood pressure 141/81, pulse 71, height 170.2 cm (5' 7 ), weight 68.9 kg (152 lb), not currently . Respiratory Source: No data recorded Admission Weight: Weight: 68.9 kg (152 lb) Labs: Lab Results Component Value Date WBC 11.8 (H) 12/10/2022 HGB 13.8 12/10/2022 HCT 41.1 12/10/2022 MCV 89 12/10/2022 PLT 276 12/10/2022 Lab Results Component Value Date GLU 102 (H) 12/10/2022 CALCIUM 8.9 12/10/2022 K 3.8 12/10/2022 CO2 21 (L) 12/10/2022 CL 111 (H) 12/10/2022 BUN 17 12/10/2022 CREATININE 0.56 12/10/2022 No results found for: AMYLASE Lab Results Component Value Date LIPASE 32 12/10/2022 Lab Results Component Value Date ALT 17 12/10/2022 AST 18 12/10/2022 ALKPHOS 54 12/10/2022 Lab Results Component Value Date INR 1.1 01/31/2017 PROTIME 12.8 (H) 01/31/2017 Assessment: Tapan Mclean is a 33 y.o.female with x2, the preauricular 1 is symptomatic. Recommend excision. Watchful waiting for left cheek epidermoid cyst Epidermoid cyst of skin of ear [L72.0] Plan: Schedule for excision of right periauricular epidermoid cyst in the operating room under local anesthesia Evaluation included: Preparing to see the patient (e.g., review of tests) Obtaining and/or reviewing separately obtained history Performing a medically appropriate examination and/or evaluation Counseling and educating the patient/family/caregiver Referring and communicating with other health pharmacy care coordinator Eva Sloan MD [facility] General Surgery [place] documented in this encounter [facility] 07-18-2023 Miscellaneous Notes Called patient as she no showed for her appointment to discuss colonoscopy. [place] did not wish to reschedule at this time. documented in this encounter [facility] 07-18-2023 Telephone encounter Note Called patient as she no showed for her appointment to discuss colonoscopy. [place] did not wish to reschedule at this time. [facility] 07-22-2021 Note OPERATIVE NOTE OPERATION DATE: 07/22/2021 PROCEDURE: Bilateral laparoscopic salpingectomy. PREOPERATIVE DIAGNOSIS: Desires permanent sterilization, multiparity. POSTOPERATIVE DIAGNOSIS: Desires permanent sterilization, multiparity. ANESTHESIA: General. SURGEON: Prem Omalley M.D. CHLOROBUTADIENE SCRUBBER OPERATOR: DEUCE Zimmer URINE OUTPUT: Yellow and clear. [...] [facility] Signed and Approved by: DR PREM OMALLEY . 07/25/2021 07:40:00 [facility] 05-15-2021 Note PROCEDURE: US PREG B IOPHY [...] by: CIARAN KEENAN Date: 2021-05-15 14:04 [facility] Evaluation note Diagnosis Acne vulgaris- Primary Other acne documented in this encounter [facility]* Diagnosis Epidermoid cyst of skin of ear- Primary [facility] Diagnosis Epidermoid cyst of face- Primary documented in this encounter [facility] System[facility]* Diagnosis Well woman exam with routine gynecological exam Routine gynecological examination Menorrhagia with regular cycle documented in this encounter [facility]ructionsNot on filedocumented in this [facility] SystemInstructionsNot on filedocumented in this encounterPro[facility] SystemInstructionsNot on filedocumented in this encounterProMer[facility] SystemInstructionsNot on filedocumented in this [facility]Pro[facility] Summary Purpose Family History No Family History Records FoundNo Family History Records FoundNo Family History Records FoundNo Family History Records FoundNo Family History Records Found Advance Directives No Advanced Directives Records FoundDocuments on File Type Date Recorded Patient Case Reviewer Expl anation Advance Directives and Living Will Power of Manager Of Business Operations Date Activated Date Inactivated Comments 05/16/2021 1:08 AM 05/17/2021 4:57 PM Date Activated Date Inactivated Comments 10/27/2019 2:12 AM 10/27/2019 6:36 PM Date Activated Date Inactivated Comments 05/16/2021 1:08 AM 05/17/2021 4:57 PM Date Activated Date Inactivated Comments 10/27/2019 2:12 AM 10/27/2019 6:36 PM Reason for Referral Specialty Diagnoses / Procedures Referred By Jalyn sánchez Referred To Contact Diagnoses Epidermoid cyst of skin of ear Procedures Unlisted Procedure / Surgery Eva Sloan MD [address] [place] [address] Referral ID Status Reason Start Date Expiration Date V isits Requested Visits Authorized [id number] Pending Review 10/02/2023 10/01/2024 1 1 Additional Source Comments INFORMATION SOURCE (unrecogn ized section and content) DATE CREATED AUTHOR 05/15/2019 [facility] DATE CREATED AUTHOR AUTHOR'S ORGANIZ ATION 05/11/2022 [facility] DATE CREATED AUTHOR AUTHOR'S ORGANIZ ATION 10/30/2023 [facility] DATE CREATED AUTHOR AUTHOR'S ORGANIZ ATION 01/03/2024 [facility] DATE CREATED AUTHOR AUTHOR'S ORGANIZ ATION 05/01/2024 [facility] Reason for Visit (unrecogniz ed section and content) Reason Comments Acne Reason Comments Cyst Cutaneous cyst on pr e-auricular area, referred by Dr. Rosenberg, Right ear and left cheek Reason Comments POST-OP VISIT 2 WEEK POST OP EXCIS ION ON CYST 10/15/23 Reason Comments Well Women Visit Care Teams (unrecognized sec tion and content) Fabric Worker Fitter Relationship Specialty Start Date End Date Bria Scott, SIDE GUIDER-PROCESS ENGINEERING TECHNICIAN [address], [place] [id number] PCP - General Family Medicine 06/27/23 Fabric Worker Fitter Relationship Specialty Start Date End Date Belem Joiner MD [address] [place] [id number] PCP - [facility] 10/02/23 Fabric Worker Fitter Relationship Specialty Start Date End Date Belem Joiner MD [address] [place] [address] [phone] PCP - [facility] 10/02/23 Fabric Worker Fitter Relationship Specialty Start Date End Date Belem Joiner MD [address] [place] [address] [phone] PCP - General Family [facility] 10/02/23 FOR RECORDS PERTAINING TO PATIENTS WHO ARE [...] BE BASED ON THE PRIMARY CLINICAL RECORDS. [facility] [employer] [facility]. provides no warranty or guarantee of the accuracy or completeness of information in this document.
[2024-05-06 10:36] LABS: Estimated Average Glucose 103 mg/dL; Glycohemoglobin A1C 5.2 % (4.5-6.2)
[2024-05-06 10:38] LABS: Basophils Absolute Auto 0.1 10^3/uL (0.0-0.1); Basophils Percent Auto 0.6 % (0.2-2.0); Eosinophils Absolute Auto 0.1 10^3/uL (0.0-0.7); Eosinophils Percent Auto 1.4 % (0.9-7.0); Hematocrit 43.5 % (36.0-48.0); Hemoglobin 14.9 g/dL (12.0-16.0); Immature Granulocytes Abs Auto 0.02 10^3/uL (0.00-0.03); Immature Granulocytes Pct Auto 0.2 % (0.0-0.5); Lymphocytes Absolute Auto 2.5 10^3/uL (1.2-3.8); Lymphocytes Percent Auto 25.7 % (20.5-60.0); Mean Corpuscular HGB Conc 34.3 g/dL (29.9-35.2); Mean Corpuscular Hemoglobin 32.5 pg (26.7-34.0); Mean Corpuscular Volume 94.8 fL (81.0-99.0); Mean Platelet Volume 9.9 fL (9.5-13.5); Monocytes Absolute Auto 0.5 10^3/uL (0.3-0.8); Monocytes Percent Auto 5.4 % (1.7-12.0); Neutrophils Absolute Auto 6.5 10^3/uL (1.4-6.5); Neutrophils Percent Auto 66.7 % (43.0-75.0); Platelet Count 287 10^3/uL (150-450); Red Blood Count 4.59 10^6/uL (4.20-5.40); Red Cell Distribution Width 12.7 % (11.0-15.0); White Blood Count 9.8 10^3/uL (4.0-11.0)
[2024-05-06 11:18] LABS: INR 1.08; Prothrombin Time 11.4 sec (9.0-11.6)
[2024-05-06 11:37] LABS: Free T4 0.88 ng/dL (0.76-1.46)
[2024-05-06 11:39] LABS: Thyroid Stimulating Hormone 1.098 uIU/mL (0.358-3.740)
[2024-05-06 11:42] LABS: HCG Quantitative <1 mIU/mL
== END 2024-05-06 09:30 | disposition home or self-care (01) ==
LOC: US 09:29
PROVIDERS: Visit Provider Obstetrics & Gynecology
DX: N92.0 Excessive and frequent menstruation with regular cycle (principal)
CPT/HCPCS: 36415; 76830; 76856; 83036; 84439; 84443; 84702; 85025; 85610; 85730